=== PATIENT | male | born 1965 | race Caucasian/White ===

== ENCOUNTER 2021-08-27 17:40 | Outpatient (CLI) | payer OTHER, SELFPAY ==
--- NOTE | ~2021-08-27 | CT_ITS ---
EXAMINATION: CT lung screening DATE: 08/27/2021 18:15 INDICATION: Personal history of nicotine dependence, prior smoker with 45 pack year history TECHNIQUE: Computed tomography (CT) of the chest was performed without intravenous contrast. The dose -length product (DLP) was 271.28 mGy-cm. Automated exposure control and iterative reconstruction tech [employer] were employed. COMPARISON: None FINDINGS: There is a 5 mm nodule of the right middle lobe on image 73. There is mild emphysema. The l ungs are free of focal airspace opacities. There is no pleural effusion or pneumothorax. No pathologi balta enlarged thoracic lymph nodes are identified. The heart size is normal. There is calcified vargas nary artery atherosclerosis. A small pericardial effusion is noted. The gallbladder is surgically abs ent. There is mild thoracic spondylosis. IMPRESSION: 1. Lung-RADS category 2: Benign appearance or behavior. Continue annual screening with noncontrast lo w-dose chest CT in 12 months. Reviewed, dictated and finalized at location B. IMPRESSION: 1. Lung-RADS category 2: Benign appearance or behavior. Continue annual screeni ng with noncontrast low-dose chest CT in 12 months.
== END 2021-08-27 17:41 | disposition home or self-care (01) ==
LOC: ANHIMG 17:48
PROVIDERS: PCP Emergency Medicine; Visit Provider Emergency Medicine
DX: Z12.2 Encounter for screening for malignant neoplasm of respiratory organs (principal); Z87.891 Personal history of nicotine dependence
CPT/HCPCS: 71271

== ENCOUNTER 2023-11-10 14:02 | Outpatient (CLI) | payer OTHER, SELFPAY ==
--- NOTE | ~2023-11-10 | CT_ITS ---
EXAMINATION: CT lung screening DATE: 11/10/2023 14:17 INDICATION: Personal history nicotine dependence, current smoker with 45 pack year history TECHNIQUE: Computed tomography (CT) of the chest was performed without intravenous contrast. The dose -length product (DLP) was 204.14 mGy-cm. Automated exposure control and iterative reconstruction tech [employer] were employed. COMPARISON: 08/27/2021 FINDINGS: There is mild emphysema. The previously described nodule of the right middle lobe is no tam cliff present, likely resolving infection/inflammation. There is mild dependent atelectasis. No pleural effusion or pneumothorax. No pathologically enlarged thoracic lymph nodes are identified. The heart size is normal. Calcified coronary artery atherosclerosis is noted. There is a small, chronic pericar dial effusion. Changes of cholecystectomy are noted. There is mild thoracic spondylosis. IMPRESSION: 1. Lung-RADS category 1: Negative. Continue annual screening with noncontrast low-dose chest CT in 12 months. Reviewed, dictated and finalized at location F. EY MORTISER OPERATOR IMPRESSION: 1. Lung-RADS category 1: Negative. Continue annual screening with noncontrast l ow-dose chest CT in 12 months.
== END 2023-11-10 14:03 | disposition home or self-care (01) ==
PROVIDERS: PCP Emergency Medicine; Visit Provider Emergency Medicine
DX: Z12.2 Encounter for screening for malignant neoplasm of respiratory organs (principal); F17.210 Nicotine dependence, cigarettes, uncomplicated; R10.84 Generalized abdominal pain
CPT/HCPCS: 71271

== ENCOUNTER 2023-11-10 14:32 | Emergency (ER) | payer OTHER, SELFPAY ==
--- NOTE | ~2023-11-10 | CT_ITS ---
EXAMINATION: CT abdomen pelvis w con INDICATION: Epigastric pain TECHNIQUE: Computed tomographic images of the abdomen and pelvis were obtained after the administrati on of 100 cc of Omnipaque 350 intravenous contrast. The dose-length product (DLP) was 1034.17 mGy-cm. Automated exposure control and iterative reconstruction technique were employed. COMPARISON: None available FINDINGS: Minimal dependent atelectasis is present in the lung bases. The heart size is normal. There is circumferential wall thickening of the distal esophagus. There is wall thickening in the distal b fabian of the stomach. There appears to be an ulcer in the posterior/cranial aspect of the body of the s tomach. Changes of cholecystectomy are noted. The liver, spleen, pancreas, and adrenal glands are nor mal. Cysts of the kidneys measure up to 10 mm on the left. No pathologically enlarged abdominal or pe lvic lymph nodes are identified. There is calcified atherosclerosis of the aorta and many of the othe r arteries. A moderate volume of colonic stool is present. The appendix is normal. There is moderate lumbar spondylosis. IMPRESSION: 1. Wall thickening of the stomach associated with an apparent ulceration in the distal body. 2. Wall thickening of the esophagus which could reflect esophagitis. Reviewed, dictated and finalized at location F. DISTRIBUTION SUPERVISOR
[2023-11-10 15:03] VITALS: BP 144/75; PULSE 64; RESP 16; TEMP 36.6; O2SAT 98
--- NOTE | 2023-11-10 16:06 | ED.GENADULT ---
HPI - General Adult General Chief complaint: Abdominal Pain Stated complaint: abdominal pain Time Seen by Provider: 11/10/23 16:05 Source: patient Mode of arrival: ambulatory Limitations: no limitations History of Present Illness HPI narrative: This is a 58-year-old male who presents to the ED with chief complaint of abdominal pain for 1 month. Reports he was scheduled for CT scan today for his chest abdomen and pelvis but insurance denied the abdomen and pelvis. Reports the pain is across the mid abdomen and comes and goes intermittently. He does not feel things are worsening. He was told by his primary care to come here for abdominal ultrasound. Patient is otherwise asymptomatic. Reports that he has had 2 episodes of vomiting in the past month but none today. Denies fevers, chills Past history of cholecystectomy. Related Data Allergies Allergy/AdvReac Type Severity Reaction Status Date / Time No Known Allergies Allergy Unverified 08/19/15 13:00 Review of Systems Review of Systems: All systems as dictated in HPI Exam Narrative: GENERAL: Well-appearing, well-nourished, and in no acute distress. HEAD: Normocephalic, atraumatic. EYES: PERRLA and EOMI. ENT: Nares clear, no rhinorrhea or epistaxis. Mucous membranes moist. NECK: Supple. No adenopathy or masses. CHEST: No respiratory distress. Clear to auscultation. No wheezes rales or rhonchi HEART: Regular rate and rhythm. No murmur heard. Normal peripheral pulses. ABDOMEN: Mild epigastric tenderness. soft, otherwise nontender, nondistended, normal active bowel sounds. MSK: Normal range of motion. No edema. SKIN: Warm, dry, no rash. NEURO: Alert and oriented x3. No focal deficits. PSYCH: Normal mood and affect. Course Vital Signs Vital signs: Vital Signs Temperature 97.9 F 11/10/23 15:03 Pulse Rate 64 11/10/23 15:03 Respiratory Rate 16 11/10/23 15:03 Blood Pressure 144/75 H 11/10/23 15:03 Pulse Oximetry 98 11/10/23 15:03 Oxygen Delivery Room Air 11/10/23 15:03 Temperature 97.9 F 11/10/23 15:03 Pulse Rate 64 11/10/23 15:03 Respiratory Rate 16 11/10/23 15:03 Blood Pressure 144/75 H 11/10/23 15:03 Pulse Oximetry 98 11/10/23 15:03 Oxygen Delivery Room Air 11/10/23 15:03 Medical Decision Making [facility] Narrative Medical decision making narrative: This is a 58 of year old male with chief complaint of abdominal pain for 1 month. Refer to the ED by primary care for a CT scan after his got denied by insurance today. Vitals here are normal. Afebrile. Exam does show epigastric tenderness. Lab work shows normal white count. Lipase normal. CMP shows slightly elevated BUN at 23 and elevated glucose at 10:[address] abdomen and pelvis with IV contrast: 1. Wall thickening of the stomach associated with an apparent ulceration in the distal body. 2. Wall thickening of the esophagus which could reflect esophagitis.. Symptoms are consistent with gastritis. Will start on omeprazole daily. Follow-up with PCP. Pt will be discharged in stable condition. Return precautions given and supportive measures discussed. Pt is understanding and agreeable with plan for discharge and follow-up with PCP. Vital Signs Vital Signs: Vital Signs Temperature 97.9 F 11/10/23 15:03 Pulse Rate 64 11/10/23 15:03 Respiratory Rate 16 11/10/23 15:03 Blood Pressure 144/75 H 11/10/23 15:03 Pulse Oximetry 98 11/10/23 15:03 Oxygen Delivery Room Air 11/10/23 15:03 Temperature 97.9 F 11/10/23 15:03 Pulse Rate 64 11/10/23 15:03 Respiratory Rate 16 11/10/23 15:03 Blood Pressure 144/75 H 11/10/23 15:03 Pulse Oximetry 98 11/10/23 15:03 Oxygen Delivery Room Air 11/10/23 15:03 Lab Data 11/10/23 16:26 11/10/23 16:26 Labs: Lab Results 11/10/23 Range/Units 16:26 WBC 9.3 (4.5-10.0) K/mm3 RBC 5.78 (4.6-6.20) M/mm3 Hgb 16.9 (14.0-18.0) g/dL Hct 52.2
[2023-11-10 16:33] LABS: Basophils Absolute Auto 0.1 K/mm3 (0.0-0.1); Eosinophils Absolute Auto 0.6 K/mm3 (0-0.3); Eosinophils Percent Auto 6.3 % (0-4.4); Hematocrit 52.2 % (42.0-52.0); Hemoglobin 16.9 g/dL (14.0-18.0); Immature Granulocyte Absolute 0.09 K/mm3 (0.00-0.031); Lymphocytes Absolute Auto 2.35 K/mm3 (0.9-3.2); Lymphocytes Percent Auto 25.2 % (18.3-44.2); Mean Corpuscular HGB Conc 32.4 g/dl (32-36); Mean Corpuscular Hemoglobin 29.2 pg (26-34); Mean Corpuscular Volume 90.3 fl (80-100); Mean Platelet Volume 9.9 fl (7.4-10.4); Monocytes Absolute Auto 0.7 K/mm3 (0.1-0.6); Monocytes Percent Auto 7.2 % (2.6-8.5); Neutrophils Absolute Auto 5.6 K/mm3 (1.3-6.7); Neutrophils Percent Auto 59.3 % (45.5-73.1); Platelet Count Result 237 k/mm3 (150-375); Red Blood Count 5.78 M/mm3 (4.6-6.20); Red Cell Distribution Width 12.5 % (11.5-14.5); White Blood Count 9.3 K/mm3 (4.5-10.0)
[2023-11-10 16:43] LABS: Alanine Aminotransferase 16 U/L (6-50); Albumin Level 3.9 g/dL (3.5-5.1); Alkaline Phosphatase 103 U/L (38-126); Anion Gap 7 mmol/L (8-16); Aspartate Amino Transferase 21 U/L (17-59); Bilirubin,Total 0.6 mg/dL (0.2-1.3); Blood Urea Nitrogen 23 mg/dL (9-20); Calcium 9.2 mg/dL (8.4-10.2); Carbon Dioxide 29 mmol/L (22-30); Chloride 100 mmol/L (98-107); Estimated CRCL calculation 73 ml/min; Estimated Glomerular Filt Rate > 60; Glucose 234 mg/dL (65-110); Lipase 223 U/L (23-300); Potassium 4.4 mmol/L (3.4-5.0); Sodium 136 mmol/L (137-145)
== END 2023-11-10 18:16 | disposition home or self-care (01) ==
LOC: ANHED 18:09
PROVIDERS: Emergency Provider Physician Assistant; PCP Emergency Medicine
DX: K29.70 Gastritis, unspecified, without bleeding (principal)
CPT/HCPCS: 36415; 71271; 74177; 80053; 83690; 85025; 99284; Q9967

== ENCOUNTER 2023-11-24 01:04 | Day surgery (SDC) | payer OTHER, SELFPAY ==
[2023-11-11 11:54] VITALS: BMI 29.0
--- NOTE | 2023-11-21 09:43 | SUR.PREOP ---
Patient called regarding upcoming procedure. Voicemail left regarding pt arrival date and time.
[2023-11-24 07:40] VITALS: BP 110/69; PULSE 73; RESP 18; TEMP 36.5; O2SAT 98; BMI 29.3
[2023-11-24] MEDS: LACTATED RINGERS 1,000 ML 150 ML IV CONT (08:03)
[2023-11-24 08:04] LABS: Glucose Point of Care 239 mg/dl (65-105)
--- NOTE | 2023-11-24 08:12 | P.PNAN_ITS ---
Anes - Initial Pre Proc Eval Procedure: Operation Date: 11/24/23 09:00 Proposed Procedures p Esophagogastroduodenoscopy & Colonoscopy - John Frances MD Date/Time: 11/24/23 08:12 Surgeon: John Frances MD Pre Op Diagnosis: Abnormal weight loss, early satiety, abdom.pain Patient Data Age: 58 Gender: M Height: 1.78 m Weight: 92.8 kg Last Vital Signs Temp 97.7 F 11/24/23 07:40 Pulse 73 11/24/23 07:40 Resp 18 11/24/23 07:40 BP 110/69 11/24/23 07:40 Pulse Ox 98 11/24/23 07:40 O2 Del Method Room Air 11/24/23 07:40 Allergies Allergy/AdvReac Type Severity Reaction Status Date / Time No Known Allergies Allergy Verified 11/24/23 07:47 Home Medications Medication Instructions Recorded Confirmed Type omeprazole 40 mg capsule,delayed 40 mg PO DAILY #30 caps 11/10/23 11/24/23 Rx release canagliflozin 300 mg tablet 300 mg PO DAILY 11/11/23 11/24/23 History (Invokana) gabapentin 300 mg capsule 300 mg PO TID 11/11/23 11/24/23 History insulin glargine 100 unit/mL (3 50 unit subcut HS 11/11/23 11/24/23 History mL) subcutaneous pen (Basaglar KwikPen U-100 Insulin) irbesartan 300 mg tablet 300 mg PO DAILY 11/11/23 11/24/23 History metformin 1,000 mg tablet 1,000 mg PO BID 11/11/23 11/24/23 History rosuvastatin 10 mg tablet 10 mg PO DAILY 11/11/23 11/24/23 History Laboratory Tests 11/24/23 08:02 POC Capillary Glucose 239 H mg/dl (65-105) Patient hx anesthesia problems: none Family hx anesthesia problems: none Results Review: All pre-operative results and documents have been reviewed as part of the pre- operative evaluation. [facility] Social History Social History Smoking packs per day: 0.75 Smoking cigarettes per day: 15.0 Years smoked: 46 Smoking pack-years: 34.50 Smoking status: Current every day smoker Tobacco type: cigarettes Alcohol intake: current Substance use: former Living arrangements: alone Spiritual care concerns: No Anes - Eval Final PreProcedure Day of Procedure 11/24/23 08:12 Patient weight: obese Heart: regular rate and rhythm Lungs: clear to auscultation Airway: Mallampati scale class II Neurological: alert and oriented Last oral intake: >/= 8 hours ASA classification: III Emergent: no Anesthetic plan: proceed Anesthesia type and monitoring: general GIVS and standard monitoring Results Review: All pre-operative results and documents have been reviewed as part of the pre- operative evaluation. Informed Consent: The patient's anesthetic plan and its attendant risks and benefits were discussed with the patient/family/POA. Questions were solicited and answers provided to the satisfaction of the patient/family/POA.
--- NOTE | 2023-11-24 08:41 | PM.HPGS ---
History of Present Illness History of Present Illness Consent: Risks, benefits, and alternatives have been discussed and questions answered. Patient agrees to proceed with procedure. Chief complaint: Abnormal weight loss, early satiety, abdom.pain Narrative: Jorge Monge is a 58 year old male here with 1.5 month of intermittent abdominal pain, ct scan showed possible ulceration in stomach- started omeprazole and feeling better, also constipation. Never had scopes Review of Systems Constitutional: Constitutional: Denies headache(s) and Denies weakness Eyes: Eyes: Denies blurry vision ENT: Reports Normal hearing present, Denies headache(s) and Denies neck pain Cardiovascular: Cardiovascular: Denies chest pain and Denies dyspnea Respiratory: Respiratory: Denies dyspnea Gastrointestinal: Gastrointestinal: Reports no additional gastrointestinal complaints Genitourinary: Genitourinary: Denies dysuria Musculoskeletal: Musculoskeletal: Denies neck pain Integumentary/Breasts: Skin/Breast: Denies dry skin Neurologic: Reports Normal hearing present, Denies headache(s) and Denies weakness Psychiatric: Psychiatric: Denies anxiety Endocrine: Endocrine: Denies change in body appearance Hematologic/Lymphatic: Hematologic/Lymphatic: Denies easy bleeding Allergic/Immunologic: Allergic/Immunologic: Denies urticaria PMFSH Past Medical History Medical History (Updated 11/24/23 @ 08:42 by John Frances MD) Abdominal pain Abnormal CT scan, stomach Weight loss Social History Social History Smoking packs per day: 0.75 Smoking cigarettes per day: 15.0 Years smoked: 46 Smoking pack-years: 34.50 Smoking status: Current every day smoker Tobacco type: cigarettes Alcohol intake: current Substance use: former Living arrangements: alone Spiritual care concerns: No Meds Home Medications and Allergies Home Medications Medication Instructions Recorded Confirmed Type omeprazole 40 mg capsule,delayed 40 mg PO DAILY #30 caps 11/10/23 11/24/23 Rx release canagliflozin 300 mg tablet 300 mg PO DAILY 11/11/23 11/24/23 History (Invokana) gabapentin 300 mg capsule 300 mg PO TID 11/11/23 11/24/23 History insulin glargine 100 unit/mL (3 50 unit subcut HS 11/11/23 11/24/23 History mL) subcutaneous pen (Basaglar KwikPen U-100 Insulin) irbesartan 300 mg tablet 300 mg PO DAILY 11/11/23 11/24/23 History metformin 1,000 mg tablet 1,000 mg PO BID 11/11/23 11/24/23 History rosuvastatin 10 mg tablet 10 mg PO DAILY 11/11/23 11/24/23 History Allergies Allergy/AdvReac Type Severity Reaction Status Date / Time No Known Allergies Allergy Verified 11/24/23 07:47 Vital Signs Vital Signs - 24 hr 11/24/23 07:40 Temperature 97.7 F Pulse Rate 73 Respiratory Rate 18 Blood Pressure 110/69 Pulse Oximetry 98 Oxygen Delivery Room Air Exam Const: General: comfortable and no acute distress HENMT: Face/Nose/Sinus: Normal nares present Eyes: General: appearance normal, both eyes and all related structures Neck: Neck: no JVD Resp: Auscultation: clear to auscultation bilaterally Cardio: Rate: regular rate Rhythm: regular rhythm GI: Inspection: non-distended GI Palp: Yes Soft to palpation Skin: General skin exam: normal color Neuro: General: gait normal Speech: normal speech Extrem: General: normal to inspection Psych: Mental Status: mental status grossly normal Assessment and Plan Assessment and plan (1) Abdominal pain: Code(s): R10.9 - Unspecified abdominal pain Status: Acute Assessment and Plan: scopes today (2) Abnormal CT scan, stomach: Code(s): R93.3 - Abnormal findings on diagnostic imaging of other parts of digestive tract Status: Acute Assessment and Plan: ? ulcer pain better after using ppi (3) Weight loss: Code(s): R63.4 - Abnormal weight loss Status: Acute
[2023-11-24 08:49] VITALS: BP 113/63; PULSE 70; RESP 18; O2SAT 100
--- NOTE | 2023-11-24 09:05 | SUR.OPER ---
EGD START: 850; END: 857. COLONOSCOPY START: 904; END: 915.
[2023-11-24 09:19] VITALS: BP 75/47; PULSE 64; RESP 20; O2SAT 96
[2023-11-24 09:29] VITALS: BP 74/47; PULSE 66; RESP 18; O2SAT 96
[2023-11-24 09:39] VITALS: BP 92/55; PULSE 64; RESP 20; O2SAT 96
[2023-11-24 09:40] LABS: Glucose Point of Care 237 mg/dl (65-105)
== END 2023-11-24 09:56 | disposition home or self-care (01) ==
PROVIDERS: PCP Emergency Medicine; Visit Provider Internal Medicine Gastroenterology
PROC: 0DJ08ZZ Inspection of Upper Intestinal Tract, Via Natural or Artificial Opening Endoscopic (ICD-10-PCS; CPT 43235; principal; 2023-11-24 09:00)
DX: K25.9 Gastric ulcer, unspecified as acute or chronic, without hemorrhage or perforation (principal); K29.50 Unspecified chronic gastritis without bleeding; K57.30 Diverticulosis of large intestine without perforation or abscess without bleeding; F17.210 Nicotine dependence, cigarettes, uncomplicated; E66.9 Obesity, unspecified; Z68.29 Body mass index [BMI] 29.0-29.9, adult; Z79.4 Long term (current) use of insulin; Z79.84 Long term (current) use of oral hypoglycemic drugs
CPT/HCPCS: 43239; 45378; 82948; 88305; 88342; J2704; J7120

== ENCOUNTER 2025-03-25 17:01 | Emergency (ER) | payer OTHER, SELFPAY ==
--- NOTE | ~2025-03-25 | CT_ITS ---
CT abdomen pelvis w con Ordering provider: Michael Dunbar MD History: 60 years Male with . Deep abd wall abscess/spider bite, . Comparison: November 10, 2023 Technique: CT abdomen and pelvis with IV and without oral contrast. Automated exposure control and it erative reconstruction technique were employed. The dose-length product was 745.98 mGy-cm. 100 mL Omn ipaque 350 was given IV. Findings: VISUALIZED LOWER CHEST: Dependent atelectatic changes. Trace of pericardial effusion. UPPER ABDOMINAL ORGANS: Liver: Normal. Gallbladder: Status post postcholecystectomy. Spleen: Normal. Stomach/duodenum: Normal. Pancreas: Normal. Adrenals: Normal. Kidneys: Tiny cysts in both kidneys. PELVIC ORGANS: The bladder shows thickened wall. Evaluation for cystitis advised. BOWEL AND MESENTERY: Colon: No evidence of diverticulitis. Normal appendix. Small Bowel: Normal. No obstruction. Peritoneum/mesentery: No free air or free fluid. No mesenteric lymphadenopathy. RETROPERITONEUM: Mild atheromatous disease of the abdominal aorta. No retroperitoneal lymphadenopat hy. MUSCULOSKELETAL: Superficial soft tissues: Fat stranding seen in the anterior abdominal wall and to the right side wit h focal area of collection measuring 1.5 x 2.2 cm seen in the right anterior abdominal wall suggestiv e of an abscess.. The superficial soft tissues are normal. Bones: Age appropriate degenerative changes of the spine. Sacroiliitis. IMPRESSION: 1. Trace of pericardial effusion 2. Fat stranding in the subcutaneous tissues with focal area of collection suggestive of a small abs cess in the upper anterior abdominal wall. 3. No evidence of appendicitis, diverticulitis or intestinal obstruction. Reviewed, dictated and finalized at location A. IMPRESSION: 1. Trace of pericardial effusion 2. Fat stranding in the subcutaneous tissues with focal area of collection sug gestive of a small abscess in the upper anterior abdominal wall. 3. No evidence of appendicitis, diverticulitis or intestinal obstruction.
--- OUTSIDE RECORDS SUMMARY | 2025-03-25 17:03 | XMS_ITS | Encounter Summary ---
Author Organization [facility] Healthcare Address [address] [place] [address] Care Team Providers Care Cane Flume Chute Operator Name Role Phone Isael Galdamez MD Primary Care Provider Reason for Visit * Reason Comments Insect Bite Encounter Details Date Type Department Care Team (Late st Contact Info) Description 03/24/2025 7:05 PM CDT - 03/24/2025 11:21 PM CDT Emergency [address] [address] Discharge Disposition: Left without being seen Social History Tobacco Use Types Packs/Day Years Used Date Smoking Tobacco: Some Days Cigarettes Smokeless Tobacco: Never PHQ-2 Answer Date Recorded PHQ-2 Total Score (If total score is 3 or more points, staff should administer the PHQ-9) 0 02/21/2022 Personal Safety Answer Date Recorded Have you ever been in or are you currently in a harmful physical or emotional relationship or is someone making you feel afraid or unsafe? 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 Gender Identity Not on file Sexual Orientation Not on file documented as of this encounter Last Filed Vital Signs Vital Sign Reading Time Taken Comments Blood Pressure 175/90 03/24/2025 9:37 PM CDT Pulse 79 03/24/2025 9:37 PM CDT Temperature 36.9 C (98.4 F) 03/24/2025 7:06 PM CDT Respiratory Rate 16 03/24/2025 9:37 PM CDT Oxygen Saturation 99% 03/24/2025 9:37 PM CDT Inhaled Oxygen Concentration - - Weight 94.8 kg (209 lb) 03/24/2025 7:06 PM CDT Height - - Body Mass Index 29.99 02/11/2025 8:47 AM CDT documented in this encounter Medications at Time of Discharge amLODIPine (NORVASC) 10 mg tabletIndication s:hypertension Take 1 tablet (10 mg total) by mouth daily 90 tablet 3 02/11/2025 02/11/2026 aspirin 81 mg enteric coated tablet Take 1 tablet (81 mg total) by mouth daily 11/27/2016 BASAGLAR 100 unit/mL (3 mL) pen for injectionIndicat ions:Type 2 diabetes mellitus with hyperglycemia, with long-term current use of insulin ([facility]) Inject 50 Units under the skin nightly 45 mL 3 02/11/2025 02/11/2026 blood glucose diagnostic (glucose blood) strip Check blood sugar 2 times a day or as directed 200 each 3 08/22/2022 canagliflozin (Invokana) 300 mg tabletIndication s:Type 2 diabetes mellitus with hyperglycemia, with long-term current use of insulin ([facility]) Take 1 tablet (300 mg total) by mouth daily 90 tablet 3 02/11/2025 gabapentin (NEURONTIN) 300 mg capsuleIndicatio ns:Diabetic peripheral neuropathy (HCC) Take 1 capsule (300 mg total) by mouth every morning AND 2 capsules (600 mg total) nightly AND 1 capsule (300 mg total) with lunch. 360 capsule 3 02/11/2025 02/11/2026 HYDROcodone-acet aminophen (NORCO) 5-325 mg per tablet Take 1 tablet by mouth every 6 (six) hours as needed 03/12/2024 irbesartan (AVAPRO) 300 mg tabletIndication s:Hypertension associated with type 2 diabetes mellitus (HCC) Take 1 tablet (300 mg total) by mouth daily 90 tablet 3 02/11/2025 02/11/2026 metFORMIN (GLUCOPHAGE) 1,000 mg tabletIndication s:Type 2 diabetes mellitus with hyperglycemia, with long-term current use of insulin ([facility]) Take 1 tablet (1,000 mg total) by mouth 2 (two) times a day with meals 180 tablet 3 02/11/2025 omeprazole (PriLOSEC) 40 mg capsuleIndicatio ns:Peptic ulcer disease Take 1 capsule (40 mg total) by mouth daily 90 capsule 3 06/07/2024 06/07/2025 pen needle, diabetic (Pen Needle) 31 gauge x 5/16 needle Use to inject 1-4 times daily as directed 100 each 11 01/16/2022 rosuvastatin (CRESTOR) 10 mg tabletIndication s:Hyperlipidemia associated with type 2 diabetes mellitus (HCC) Take 1 tablet (10 mg total) by mouth daily 90 tablet 3 02/11/2025 02/11/2026 semaglutide (OZEMPIC) 1 mg/dose (4 mg/3 mL) pen injector injectionIndicat ions:type 2 diabetes mellitus Inject 1 mg under the skin every 7 days 9 mL 3 02/11/2025 02/11/2026 senna 8.6 mg tablet 03/12/2024 documented as of this encounter Discharge Disposition Disposition Code Departure Means Destination Left without being seen documented in this encounter ED Notes * German Russ RN - 03/24/2025 7:24 PM CDT Pt c/o red swollen abscess on abd x 5 days. Aox4 ambulatory. Pt take BP meds @ night. No meds today documented in this encounter Plan of Treatment Not on file documented as of this encounter Visit Diagnoses Not on filedocumented in this encounter Care Teams Cane Flume Chute Operator Relationship Specialty Start Date End Date Isael Galdamez MD [address] [place] [address] PCP - General Family Medicine 07/03/21 documented as of this encounter
--- OUTSIDE RECORDS SUMMARY | 2025-03-25 17:03 | XMS_ITS | Continuity of Care Document ---
Author Organization [facility] Address [address] [place] [address] [place] [address] Phone Care Team Providers Care Roll Inspector Name Role Phone Isael Galdamez MD Unavailable Unavailable Allergies, Adverse Reactions, Alerts Substance Reaction Status Criticality No Known Allergies Active No Inform ation Medications Medication Instructions Dosage Effective Dates (start - stop) Status Comments Cymbalta 30 mg capsule,delayed release take 1 capsule by oral route every day 30 MG - Active omeprazole 40 mg capsule,delayed release take 1 capsule by oral route every day before a meal 40 MG - Active Neurontin 300 mg capsule take 1 capsule by oral route 3 times every day - Active avoid driving or operate machines Norvasc 5 mg tablet take 1 tablet by oral route every day 5 MG - Active Crestor 10 mg tablet take 1 tablet by oral route every day 10 MG - Active metformin 1,000 mg tablet take 1 tablet by oral route 2 times every day with morning and evening meals 1000 MG - Active irbesartan 300 mg tablet take 1 tablet by oral route every day 300 MG - Active Basaglar KwikPen U-100 Insulin 100 unit/mL (3 mL) subcutaneous inject by subcutaneous route as per insulin protocol 0.00 - Active 60 units SC at night Victoza 2-Jerardo 0.6 mg/0.1 mL (18 mg/3 mL) subcutaneous pen injector inject 0.2 Milliliter by subcutaneous route every day 1.2 MG - Active Invokana 300 mg tablet take 1 tablet by oral route every day before the first meal of the day 300 MG - Active pen needle, diabetic 31 gauge x 1/4 use with basaglar pen - Active Procedures Procedure Date PREV VISIT, EST, AGE 40-64 OFFICE/OUTPATIENT VISIT, EST OFFICE/OUTPATIENT VISIT, EST OFFICE/OUTPATIENT VISIT, EST OFFICE/OUTPATIENT VISIT, EST OFFICE/OUTPATIENT VISIT, EST OFFICE/OUTPATIENT VISIT, EST PREV VISIT, EST, AGE 40-64 OFFICE/OUTPATIENT VISIT, EST OFFICE/OUTPATIENT VISIT, EST PREV VISIT, EST, AGE 40-64 OFFICE/OUTPATIENT VISIT, EST OFFICE/OUTPATIENT VISIT, EST PREV VISIT, EST, AGE 40-64 OFFICE/OUTPATIENT VISIT, EST PREV VISIT, EST, AGE 40-64 OFFICE/OUTPATIENT VISIT, EST OFFICE/OUTPATIENT VISIT, EST OFFICE/OUTPATIENT VISIT, EST OFFICE/OUTPATIENT VISIT, EST OFFICE/OUTPATIENT VISIT, EST OFFICE/OUTPATIENT VISIT, EST PREV VISIT, EST, AGE 40-64 OFFICE/OUTPATIENT VISIT, EST OFFICE/OUTPATIENT VISIT, EST OFFICE/OUTPATIENT VISIT, EST OFFICE/OUTPATIENT VISIT, EST OFFICE/OUTPATIENT VISIT, EST OFFICE/OUTPATIENT VISIT, EST OFFICE/OUTPATIENT VISIT, EST OFFICE/OUTPATIENT VISIT, EST PREV VISIT, NEW, AGE 40-64 Advance Directives Directive Yes / No Effective Date File Name No Information Encounters Encounter Description Practice Location Reason(s) For Visit Diagnoses Date Provider Providers Copied on Encounter [facility], [address], [place], [address], [place] tel:[phone] [facility] No Information 4 Rudolph Kirkland. [address], [place], [place], [address] , [place]. tel:[phone] PREV VISIT, EST, AGE 40-64 [facility], [address], [place], [place], [address], [place] [phone] [facility] Medicine physical (chief complaint) Encounter for general adult medical examination without abnormal findings 4 Rudolph Kirkland. [address], [place], [place], [address] , [place]. tel:[phone] OFFICE/OUTPA TIENT VISIT, [facility], [address], [place], [place], [address], [place] tel:[phone] [facility] gastric ulcer1 (chief complaint) HTN (chief complaint) HLP (chief complaint) PSA (chief complaint) Acute gastric ulcer without hemorrhage or perforationEssentia l (primary) hypertensionElevate d prostate specific antigen [PSA]Mixed hyperlipidemia 4 Rudolph Kirkland. [address], [place], [place], [address] , [place]. tel:[phone] OFFICE/OUTPA TIENT VISIT, EST [facility], [address], [place], [place], [address], [place] tel:[phone] [facility] abd pain1 (chief complaint) tobacco1 (chief complaint) Acute gastric ulcer without hemorrhage or perforationEsophagi tisTobacco use 4 Rudolph Kirkland. [address], [place], [place], [address] , [place]. tel:[phone] OFFICE/OUTPA TIENT VISIT, EST [facility], [address], [place], [place], [address], [place] tel:[phone] [facility] abd pain1 (chief complaint) HTN (chief complaint) Abnormal weight lossGeneralized abdominal painEssential (primary) hypertension 4 Rudolph Kirkland. [address], [place], [place], [address] , [place]. tel:[phone] OFFICE/OUTPA TIENT VISIT, EST [facility], [address], [place], [place], [address], [place] tel:[phone] [facility] PSA (chief complaint) fatigue1 (chief complaint) HTN (chief complaint) DM (chief complaint) Elevated prostate specific antigen [PSA]Essential (primary) hypertensionTobacco useType 2 diabetes mellitus with diabetic mononeuropathyFatig ue 3 Rudolph Kennedy [address], [place], [place], [address] , [place]. tel: [phone] OFFICE/OUTPA TIENT VISIT, [facility], [address], [place], [place], [address], [place] tel:[phone] [facility] PSA (chief complaint) HTN (chief complaint) fatigue1 (chief complaint) DM (chief complaint) HLP (chief complaint) Essential (primary) hypertensionElevate d prostate specific antigen [PSA]Mixed hyperlipidemiaSecon vasquez polycythemiaType 2 diabetes mellitus with diabetic mononeuropathyTobac co use 3 Rudolph Kennedy [address], [place], [place], [address] , [place]. [phone] OFFICE/OUTPA TIENT VISIT, [facility], [address], [place], [place], [address], [place] tel:[phone] [facility] HTN (chief complaint) DM (chief complaint) polycyther mia1 (chief complaint) HLP (chief complaint) Essential (primary) hypertensionType 2 diabetes mellitus with diabetic nephropathySecondar y polycythemiaMixed hyperlipidemiaEleva benja prostate specific antigen [PSA] 3 Rudolph Kennedy [address], [place], [place], [address] , [place]. [phone] PREV VISIT, EST, AGE 40-64 [facility], [address], [place], [place], [address], [place] tel:[phone] [facility] physical (chief complaint) Encounter for general adult medical examination without abnormal findings 3 Rudolph Kirkland. [address], [place], [place], [address] , [place]. tel:[phone] OFFICE/OUTPA TIENT VISIT, EST [facility], [address], [place], [place], [address], [place] tel:[phone] [facility] HLP (chief complaint) DM (chief complaint) HTN (chief complaint) Essential (primary) hypertensionHyperli pidemiaType 2 diabetes mellitus with diabetic mononeuropathy 2 Rudolph Kirkland. [address], [place], [place], [address] , [place]. tel:[phone] OFFICE/OUTPA TIENT VISIT, [facility], [address], [place], [place], [address], [place] tel:[phone] [facility] HLP (chief complaint) DM (chief complaint) HTN (chief complaint) Essential (primary) hypertensionHyperli pidemiaType 2 diabetes mellitus with diabetic mononeuropathyTobac co use 1 Rudolph Kirkland. [address], [place], [place], [address] , [place]. tel:[phone] PREV VISIT, EST, AGE 40-64 [facility], [address], [place], [place], [address], [place] tel:[phone] [facility] Medicine physical (chief complaint) Encounter for general adult medical examination without abnormal findings 1 Rudolph Kirkland. [address], [place], [place], [address] , [place]. [phone] OFFICE/OUTPA TIENT VISIT, EST [facility], [address], [place], [place], [address], [place] tel:[phone] [facility] DM (chief complaint) tobacco1 (chief complaint) HTN (chief complaint) HLP (chief complaint) HyperlipidemiaEssen tial (primary) hypertensionTobacco useType 2 diabetes mellitus with diabetic mononeuropathySecon vasquez polycythemia 1 Rudolph Kennedy [address], [place], [place], [address] , [place]. [phone] OFFICE/OUTPA TIENT VISIT, EST [facility], [address], [place], [place], [address], [place] tel:[phone] [facility] DM (chief complaint) HTN (chief complaint) shoulder pain1 (chief complaint) tobacco (chief complaint) Essential (primary) hypertensionPain in right shoulderSecondary polycythemiaHyperli pidemiaTobacco useType 2 diabetes mellitus without complications 9 Rudolph Kennedy [address], [place], [place], [address] , [place]. [phone] Referring Provider: [address], [place], [place], [address]. tel:[phone] PREV VISIT, EST, AGE 40-64 [facility], [address], [place], [place], [address], [place] tel:[phone] [facility] PHysical (chief complaint) Encntr for general adult medical exam w/o abnormal findings 9 [address], [place], [place], [address] , [place]. [phone] Referring Provider: [address], [place], [place], [address]. tel:[phone] OFFICE/OUTPA TIENT VISIT, EST [facility], [address], [place], [place], [address], [place] tel:[phone] [facility] HLP (chief complaint) HTN (chief complaint) DM (chief complaint) Type 2 diabetes mellitus without complicationsEssent ial (primary) hypertensionMixed hyperlipidemiaEncou nter for screening for other viral diseases 7 Rudolph Kennedy [address], [place], [place], [address] , [place]. [phone] Referring Provider: Florecita [address], [place], [place], [address]. tel:[phone] PREV VISIT, EST, AGE 40-64 [facility], [address], [place], [place], [address], [place] tel:[phone] [facility] Physical (chief complaint) Encounter for general adult medical exam w abnormal findingsEssential (primary) hypertensionMixed hyperlipidemiaType 2 diabetes mellitus without complications 0- 7 Rudolph Kirkland. [address], [place], [place], [address] , [place]. [phone] Referring Provider: Florecita Ari[address], [place], [place], [address]. tel:[phone] OFFICE/OUTPA TIENT VISIT, [facility], [address], [place], [place], [address], [place] tel:[phone] [facility] HLP (chief complaint) hTN (chief complaint) DM (chief complaint) Mixed hyperlipidemiaEssen tial (primary) hypertensionType 2 diabetes mellitus without complicationsFamily history of ischemic cardiac disease 7 Rudolph Kirkland. [address], [place], [place], [address] , [place]. [phone] Referring Provider: [address], [place], [place], [address]. tel:[phone] OFFICE/OUTPA TIENT VISIT, [facility], [address], [place], [place], [address], [place] tel:[phone] [facility] DM (chief complaint) HLP (chief complaint) HTN (chief complaint) back pain1 (chief complaint) Mixed hyperlipidemiaEssen tial (primary) hypertensionType 2 diabetes mellitus without complicationsLumbag o with sciatica, left side Jul-0 6 Rudolph Kennedy [address], [place], [place], [address] , [place]. [phone] Referring Provider: Florecita Ari[address], [place], [place], [address]. tel:[phone] OFFICE/OUTPA TIENT VISIT, EST [facility], [address], [place], [place], [address], [place] tel:[phone] [facility] DM (chief complaint) HLP: (chief complaint) Mixed hyperlipidemiaType 2 diabetes mellitus without complications Apr-0 6 Rudolph Kirkland. [address], [place], [place], [address] , [place]. [phone] Referring Provider: Florecita Arias [address], [place], [place], [address]. tel:[phone] OFFICE/OUTPA TIENT VISIT, [facility], [address], [place], [place], [address], [place] tel:[phone] [facility] DM (chief complaint) HTN (chief complaint) HLP (chief complaint) Mixed hyperlipidemiaEssen tial (primary) hypertensionType 2 diabetes mellitus without complicationsSecond vicente polycythemia Carlito- 6 Rudolph Kennedy [address], [place], [place], [address] , [place]. tel:[phone] Referring Provider: [address], [place], [place], [address]. tel:[phone] OFFICE/OUTPA TIENT VISIT, [facility], [address], [place], [place], [address], [place] tel:[phone] [facility] DM (chief complaint) HTN (chief complaint) HLP (chief complaint) Type 2 diabetes mellitus without complicationsMixed hyperlipidemiaEssen tial (primary) hypertensionBody mass index (BMI) 34.0-34.9, adult Jan-2 6 Rudolph Kennedy [address], [place], [place], [address] , [place]. [phone] Referring Provider: Florecita Ari[address], [place], [place], [address]. tel:[phone] PREV VISIT, EST, AGE 40-64 [facility], [address], [place], [place], [address], [place] tel:[phone] [facility] Physical (chief complaint) Encounter for general adult medical exam w abnormal findingsType 2 diabetes mellitus without complicationsMixed hyperlipidemiaEssen tial (primary) hypertension Dec- 6 Rudolph Kirkland. [address], [place], [place], [address] , [place]. tel:[phone] Referring Provider: Isael Galdamez, [address], [place], [place], [address]. tel:[phone] OFFICE/OUTPA TIENT VISIT, [facility], [address], [place], [place], [address], [place] tel:[phone] [facility] HLP1 (chief complaint) HTN1 (chief complaint) DM1 (chief complaint) Essential (primary) hypertensionMixed hyperlipidemiaType 2 diabetes mellitus w/o complication 5 Rudolph Kirkland. [address], [place], [place], [address] , [place]. tel:[phone] Referring Provider: Florecita Arias [address], [place], [place], [address]. tel:[phone] OFFICE/OUTPA TIENT VISIT, [facility], [address], [place], [place], [address], [place] tel:[phone] [facility] HTN1 (chief complaint) DM1 (chief complaint) abscess1 (chief complaint) Cutaneous abscess of groinType 2 diabetes mellitus w/o complicationEssenti al (primary) hypertensionMixed hyperlipidemia 5 Rudolph Kirkland. [address], [place], [place], [address] , [place]. tel:[phone] Referring Provider: Florecita Arias [address], [place], [place], [address]. tel:[phone] OFFICE/OUTPA TIENT VISIT, [facility], [address], [place], [place], [address], [place] tel:[phone] [facility] HTN (chief complaint) foot pain (chief complaint) DM (chief complaint) Dietary surveillance and counselingPain in limbUnspecified essential hypertensionBrittle diabetesBMI 36.0 to 36.9 5 Rudolph Kirkland. [address], [place], [place], [address] , [place]. tel:[phone] Referring Provider: [address], [place], [place], [address]. tel:[phone] OFFICE/OUTPA TIENT VISIT, [facility], [address], [place], [place], [address], [place] tel:[phone] [facility] DM (chief complaint) HLP (chief complaint) HTN (chief complaint) heel spur (chief complaint) Unspecified essential hypertensionOther and unspecified hyperlipidemiaBritt le diabetesDietary surveillance and counseling 5 Rudolph Kennedy [address], [place], [place], [address] , [place]. [phone] Referring Provider: [address], [place], [place], [address]. tel:[phone] OFFICE/OUTPA TIENT VISIT, [facility], [address] [place], [address], [place] tel:[phone] [facility] DM (chief complaint) heel pain (chief complaint) HLP (chief complaint) Dietary surveillance and counselingOther hemoglobinopathiesH yperlipidemiaPain in limbBrittle diabetes 5 Rudolph Kennedy [address], [place], [place], [address] , [place]. [phone] Referring Provider: [address], [place], [place], [address]. tel:[phone] OFFICE/OUTPA TIENT VISIT, [facility], [address], [address], [place] tel:[phone] [facility] DM (chief complaint) HLP (chief complaint) HTN (chief complaint) heel pain (chief complaint) ED (chief complaint) Dietary surveillance and counselingDiabetes Mellitus, Adult Onset, UncontrolledOther and unspecified hyperlipidemiaHyper tension, UnspecifiedPain in limb 5 Rudolph Kirkland. [address], [address] , . [phone] Referring Provider: [facility] [facility] [place], [place], [address]. tel:[phone] OFFICE/OUTPA TIENT VISIT, [facility], [address] [place], [address], [place] [phone] [facility] DM (chief complaint) HLP (chief complaint) vitamin D (chief complaint) elevated H&H (chief complaint) Dietary surveillance and counselingDiabetes Mellitus, Adult Onset, UncontrolledOther and unspecified hyperlipidemiaUnspe cified vitamin d deficiencyOther hemoglobinopathies 5 Rudolph Kennedy [address], [place], [place], [address] , [place]. [phone] Referring Provider: Florecita Arias [address] [facility] [place], [address]. tel:[phone] PREV VISIT, NEW, AGE 40-64 [facility], [address] [place], [address], [place] [phone] [facility] Physical (chief complaint) Dietary surveillance and counselingRoutine Medical ExamRoutine Medical Exam 5 Rudolph Kirkland. [address], [address] , [place]. tel:[phone] Family History Family Member Type Diagnosis Age At Onset Mother Problem (finding) Coronary artery disease 66 Father Problem (finding) Coronary artery disease 66 Sister Problem (finding) Alive and well Payers Payer name Insurance type Covered green party ID Authoriza tion(s) No Information Social History Type Description Quantity Date Captured Comments Alcohol Use Details Unknown Caffeine Use Details Unknown Tobacco Use Status No Information Smoking Status No Information Sex Male Chief Complaint And Reason For Visit No Information Plan Of Treatment Date Type Action Status Goal Tobacco cessation counseling completed Goal Tobacco cessation counseling completed Goal Special diet education compl eted Goal Special diet education compl eted Goal Tobacco cessation counseling completed Goal Tobacco cessation counseling completed Goal Tobacco cessation counseling completed Referral Ordered: COLONOSCOPY AND BIOPSY ordered Referral Ordered: CT ABDOMEN&PELVIS W/CONTRAST ordered Referral Ordered: Ambrosio Nolasco -Allopathic & Osteopathic Physicians : Urology (related to Elevated prostate specific antigen [PSA]) ordered Referral Referred To: Ambrosio Nolasco [address] [facility]
[address] [place], [place], [phone] Ordered: Referrals: Allopathic & Osteopathic Physicians : Urology. Ambrosio Nolasco. Evaluate and treat ordered Referral Ordered: SLEEP STUDY, ATTENDED ordered Referral Ordered: Junito Jimenez -Allopathic [facility] Osteopathic Physicians : Internal Medicine : Endocrinology, Diabetes & Metabolism (related to Encounter for general adult medical examination without abnormal findings) ordered Referral Ordered: CT THORAX W/O DYE ordered Referral Ordered: Junito Jimenez -[facility]opathic [facility] Osteopathic Physicians : Internal Medicine : Endocrinology, Diabetes & Metabolism (related to Type 2 diabetes mellitus without complications) ordered Referral Ordered: Bernard Mobley -Allopathic & Osteopathic Physicians : Orthopaedic Surgery (related to Pain in right shoulder) ordered Referral Referred To: Junito Jimenez [address] [place], [place], [phone] Ordered: Referrals: Allopathic & Osteopathic Physicians : Internal Medicine : Endocrinology, Diabetes & Metabolism. Junito Jimenez. Evaluate and treat ordered Referral Referred To: Bernard Mobley [address] [place], [place], [phone] Ordered: Referrals: Allopathic & Osteopathic Physicians : Orthopaedic Surgery. Bernard Mobley. Evaluate and treat ordered Referral Ordered: US EXAM, EXTREMITY ordered Referral Ordered: LISSETH MARCH (related to Family history of ischemic cardiac disease) ordered Referral Referred To: LISSETH MARCH [address] [place], [place], [phone] Ordered: Referrals: LISSETH MARCH. Evaluate and treat ordered Referral Ordered: Junito Jimenez (related to Type 2 diabetes mellitus without complications) ordered Referral Referred To: Junito Jimenez [address] [place], [phone] Ordered: Referrals: Junito Jimenez. Evaluate and treat ordered Referral Ordered: Hematology (related to Encounter for general adult medical exam w abnormal findings) ordered Referral Ordered: Natalee Palomino (related to Encounter for general adult medical exam w abnormal findings) ordered Referral Ordered: Referrals: Hematology. Evaluate and treat ordered Referral Referred To: Natalee Palomino [address] [facility]
[address] [place], [place], [phone] Ordered: Referrals: Natalee Palomino. Evaluate and treat ordered Referral Ordered: Orthopedic Surgery (related to Pain in limb) ordered Referral Ordered: Referrals: Orthopedic Surgery ordered Referral Ordered: HEEL/OSCALCIS XRAY Left ordered History Of Present Illness Encounter Date Complaint History Of Prese nt Illness physical Pt needs annual physical Pt has gastric ulcer pt is on omeprazole and doing ok. Pt denies any abd pain Pt has DM with proteinuria Pt is on metformin, victoza, Invokona and basaglar and his glucose has been around 200. his a1c is getting worse. Pt has neuropathy and dong ok with neurontin . pt has polycythemia. Pt has normal iron pt was just diagnosed with prostate CA Pt sees urology at [facility]. Pt also had PET scan done last week .Pt has HTN ,Pt feels very anxious and depressed lately due to prostate CA diagnosis. His bp is high as well .He denies any chest pain or headache. Pt denies any suicidal or homicidal thought Pt denies any crying spells. gastric ulcer1 Pt has gastric u lcer which is nonbleeding on EGD yesterday Pt also had benign colonoscopy Pt is on omeprazole nw and he has not had any abd pain. HTN Pt has HTN Pt ta kes irbesartan and norvasc and his bp is ok HLP Pt has HLP pt ta kes crestor .pt denies any myalgia PSA Pt has elevated PSA Pt denies any urinary symptoms Pt is seeing urology and he will do MRI of prostate next month tobacco1 Pt has 40 pack y ear tobacco history. Pt denies any hemoptysis, sob or cough. Pt had LDCT done which was normal. Pt no longer smoking abd pain1 Pt c/o intermitt ent dull abdominal pain under belly button area for 4 weeks. Pt feels slightly nausea with vomiting x 2-3 times .Pt denies any diarrhea. He notices mild bright red blood mixed with stool for several months Pt c/o constipation as well for several months. Pt denies any postprandial pain Pt has been losing weight for the past several weeks unintentionally .Pt notices change of bowel with more constipation lately. Pt feels mild early satiety. Pt went to ER and he had Ct done which showed esophagitis and gastric ulcer. his hemoglobin is ok. Pt was started on omeprazole but he has not started it yet. abd pain1 Pt c/o intermitt ent dull abdominal pain under belly button area for 3 weeks. Pt feels slightly nausea with vomiting x 2-3 times .Pt denies any diarrhea. He notices mild bright red blood mixed with stool for several months Pt c/o constipation as well for several months. Pt denies any postprandial pain Pt has been losing weight for the past several weeks unintentionally .Pt notices change of bowel with more constipation lately. Pt feels mild early satiety HTN Pt has HTN Pt ta kes irbesartan and norvasc and bp is better now .Pt denies any chest pain or headache PSA Pt has elevated PSA. Pt denies any urinary symptoms Pt saw urology and he will do MRI of prostate soon fatigue1 Pt has chronic f atigue Pt snores. Pt has magad for sleep study next month DM Pt has DM with n europathy pt doing better with neurontin 300 mg TID. Pt saw endo recently .Pt is on same Dm meds. Pt states that his glucose is around 120s HTN Pt has HTN, Pt t akes irbesartan 300 mg daily and his bp is still high Pt denies any chest pain or headache Pt does not check his bp at home fatigue1 Pt c/o chronic f atigue with mild polycythemia. Pt has not done home sleeps study yet DM Pt has DM Pt see s endo. Pt takes neurontin for neuropathy Pt denies any polyuria, polydipsia. Pt is on insulin. Pt is on metformin, victoza and insulin. HTN Pt has HTN Pt ta kes irbesartan 300 mg daily and his bp is borderline high. Pt does not check his bp at home Pt denies any chest pain or headache PSA Pt denies any ur inary symptoms but his PSA is treading up and his free PSA is low. HLP Pt has HLP .Pt t latrice webster. Pt denies any myalgia HTN Pt has HTN. Pt t akes irbesartan and his bp is high in office Pt denies any chest pain or headache DM Pt has Dm. pt se es endo. His glucose and A1c are improving. Pt denies any polyuria, ,polydipsia. Pt has neuropathy and he only takes neurontin BID. He had foot exam done by endo. Pt has proteinuria Pt denies any urinary symptoms polycythermia1 Pt has mild poly cythemia. Pt had negative hematology evaluation. pt does smoke. Pt denies any snoring. HLP Pt has HLP Pt ta randal webster and his lipid profile is ok physical Pt needs annual physical. Pt has DM with neuropathy. Pt sees endo and he is on invokona, basaglar and victoza and his glucose is around 120s. his A1c was 7.6 last week from endo. Pt denies any polyuria, polyuria. Pt has worsening neuropathy. Pt only takes neurontin once per night. Pt has HT, Pt takes irbesartan and his bp is stable. Pt has HLP Pt takes crestor. Pt denies any myalgia. Pt overall feels fine. Pt denies any other complaints HLP Pt has HLP. Pt t akes crestor and his lipid profile is ok. Pt denies any myalgia DM Pt has DM. Pt ta kes invokona, metformin ,victoza and insulin and his A1c is much improved. Pt denies any polyuria, polypodia. Pt takes neurontin which is helping his neuropathy. HTN Pt has HTN Pt ta kes irbesartan and his bp is stable. Pt denies any chest pain or headache HLP Pt has HLP ,Pt t akes crestor and he denies any myalgia. HTN Pt has HTN. Pt t akes irbesartan but he is out. His bp is borderline high today Pt has not been checking his bp at home. Pt denies any chest pain or headache DM Pt has DM. Pt sa w endo. Pt takes metformin, insulin 65 units now and invokona, and victoza. Pt states that his glucose is around 100 .Pt denies any polyuria, polydipsia Pt c/o mild numbness and tingling both feet physical Pt needs annual physical Pt has poorly controlled DM Pt denies any polyuria, polydipsia. Pt states that his glucose is around 150s. His A1c is over 150. His bp is borderline today on irbesartan. He has not been checking his bp at home. Pt has mild proteinuria. Pt feels mildly fatigue .Pt denies any snoring .Pt denies any neuropathy. DM Pt moved away an d just moved back recently. He was seeing a doctor in [facility] and he was taken off losartan and zocor Pt denies any myalgia Pt has very mild neuropathy both feet .Pt denies any cold extremity. He has not done lab for a while .Pt was told that his bp was low so losartan was removed. Pt overall feels ok HTN Pt has HTn. his bp is high today. He was stopped losartan for unknown reason. He denies any chest pain or headache HLP Pt has HLP Pt orr s not been taking zocor Pt denies any myalgia. tobacco1 Pt quit smoking recently Pt denies any sob, hemoptyses, or cough DM Pt has DM pt maria e es basaglar and also metformin and his BG is around 200. His A1c is over 12. Pt has mild polyuria, polydipsia. Pt denies any neuropathy HTN Pt has HTn, Pt t akes losartan and BP stable shoulder pain1 Pt has chronic r ight shoulder pain Pt denies any injury .Ultrasound shoed rotator cuff tear. tobacco Pt has tobacco h istory PHysical Pt needs annual physical pt has DM pt takes lantus and metformin. pt states that his glucose is around 250s but he has been out of insulin for a while Pt denies any polyuria, polydipsia. He states that his glucose was around 200 even when he was on metformin 850 bid and also lantus. Pt has HLP Pt was on zocor and fenofibrate and he has not had above for over one year. pt moved away and just recently moved back. Pt told me he was never prescribed any cholesterol meds while away. Pt also was only on losartan and his doctor took him off the norvas His BP has been normal except when he did the [employer] physical. and his BP was 160/90s Pt failed the physical due to above pt denies any chest pain or headache Pt was on losartan when he had physical done but now he is out of losartan and his BP is actually normal in office. Pt also lost close to 50 pounds Pt changed his diet slightly but he is not intentionally losing weight. He denies any appetite issue, nausea, vomiting, diarrhea, blood in stool, etc. Pt c/o right shoulder pain for 2 months Pt denies any injury. He states that he has sharp pain when he moves his right shoulder, He denies any radiculopathy or neck pain HLP Pt has HLP. Pt t akes zocor and feno. Pt denies any myalgia HTN Pt takes losarta n and norvasc. His BP is borderline high. Pt denies any chest pain or headache DM Pt takes metfomr in and lantus and trulicity. Pt sees endo. His BG is around 200 per patient. Pt denies any hypolglycemia Pt denies any polyuria polydipsia Physical Pt needs annual physical. pt has DM Pt sees endo at [facility] and his A1c is down to 8.1. Pt takes feno and zocor. Pt denies any myalgia, Pt takes losartan and norvac and his BP is stable. Pt denies any chest pain Pt also had negative cardiac stress test. Pt denies any chest pain Pt overall feels well. HLP Pt has HLP. Pt t akes feno and zocor and doing ok. Pt denies any myalgia hTN Pt takes losarta n and norvasc and his BP is stable. Pt denies any chest pain, headache DM Pt takes metfomr in, lantus and trulicity now. Pt sees endo. His BG is around 160s now. pt denies any hypoglycemia, polyuria polydipsia back pain1 Pt c/o low back pain with left sciatica since last week. Pt notices mild numnbess left leg. Pt denies any loss of bowel or bladder control. Pt denies any injury. Pt denies any pain now. Pt went to ER and was prescribed muscle relaxant and had CT done DM Pt has DM. Pt is on lantus 65 units at night and also metformin 1000 mg BID Pt is seeing endo. Pt was started on byetta but insurance did not cover it. Pt basically is just taking metformin and lantus now Pt states that his BG Is around 200. Pt denies any polyuria, polydipsia HLP Pt has HLP. Pt t akes zocor and feno. Pt denies any myalgia. Pt is on low fat and low carb diet HTN Pt takes losarta n and norvasc. his BP Is stable Pt denies any chest pain or headache HLP: Pt takes zocor a nd feno. His cholesterol is good. Pt denies any myalgia DM Pt has poorly co ntrolled DM. Pt works outside and he does not eat regularly. pt sometimes skip apidra. pt takes metformin, lantus and apidra. His BG is around 250s. His A1c is 11. HTN Pt takes norvasc and losartan and his BP is stable. Pt denies any chest pain or headache HLP Pt takes feno an d zocor. Pt denies any myalgia. Pt is on low fat and low carb diet DM Pt has DM. Pt ta kes metformin and lantus and apidra. Pt states that his BG is around 150s now. Pt denies any hypoglycemia. Pt deneis any polyuria, polydipsia DM Pt has been taki ng lantus 65 units, metformin and also apidra and his BG is still around 250s. Pt denies any polyuria, polydipsia. Pt denies any hypglycemia HTN Pt takes losarta n and also norvasc and his BP is stable. Pt denies any swelling HLP Pt has HLP. Pt t akes feno and zocor. Pt denies any myalgia. Pt is trying low fat and low carb diet Physical Pt needs annual physical. pt has very poorly controlled DM. His Bg is around 300. Pt is not very compliant with diet. His TG is high. Pt also has elevated H&H and low vitamin D. Pt takes losaratn and norvasc and his BP is high today. Pt denies any complaints. Pt overall feels well. HLP1 Pt has HLP. Pt t akes zocor. Pt denies any mylagia HTN1 Pt has HTN. Pt r un out of norvasc Pt takes losartan only. His BP is slightly high. Pt denies any chest pain or headahe DM1 Pt has DM. Pt ta kes lantus and apidra. His BG is around 120s. Pt denies any numnbess. Pt denies any polyuria, polydipsia DM1 Pt takes lantus and apidra. Pt states that his BG is around 150 at home. His A1c is 8.7. Pt denies any hypoglycemia. Pt denies any polyuria, polydipsia abscess1 Pt has large lef t groin abscess. pt recieved IV rocephine in hospital over the weekend but he left AMA. Pt c/o pain and drainage left groin area. NO fever HTN1 Pt has HTN. Pt t akes losartan and his BP is high. Pt denies any chest pain or headache DM Pt has DM. Pt ta kes lantus 55 units qhs and also apidra. Pt states that his BG is around 140s. Pt recently seen ophthalmology and exam normal benign. Pt denies any numnbes foot pain Location: foot. Additional information: PT c/o left heel pain. Pt has heel spur and plantar fascinitis per ortho per patient. Pt was given some exercise and naproxen. Pt states that the exercise has not helped. Pt denies any injury. Pt states that ultram and naproxen combination helps his pain. HTN Pt is taking los bailey 100 mg daily. His BP is still borderline elevated. Pt denies any chest pain or heaeache heel spur Pt has left heel pain, getting worse lately. Pt denies any injury. HTN Pt has HTN. Pt d enies any chest pain or headahe HLP Pt has HLP. Pt t latrice zocor. Pt denies any m yalgia DM Pt has DM. Pt is taking lantus and apidra. Pt states that his BG is around 150s. His A1c is better. Pt denies any hypglycemia DM Pt has been dorcas pfeiffer lantus 50 units qhs but he has not been taking apidra. He states that his BG average around 150 now. Pt denies any hypoglycemia episodes HLP Pt has been takhemal pfeiffer zocor. Pt denies any myalgia heel pain Additional infor mation: Pt c/o persistent left heel pain. No injury. No redness. Instructions Date Instruction Additional Infor mation Special diet education Related t o Body mass index (BMI) 30.0-30.9, adult Prescribed Activity and Exercise Education Related to Dietary Surveillance and Counseling Prescribed Diet Educ ation/Lifestyle Education Regarding Diet Related to Dietary Surveillance and Counseling Check blood sugar twice a day. R elated to Type 2 diabetes mellitus without complications Increase physical activity. Rela benja to Type 2 diabetes mellitus without complications Prescribed Diet Educ ation/Lifestyle Education Regarding Diet Related to Dietary Surveillance and Counseling Prescribed Activity and Exercise Education Related to Dietary Surveillance and Counseling Prescribed Diet Educ ation/Lifestyle Education Regarding Diet Related to Dietary Surveillance and Counseling Prescribed Activity and Exercise Education Related to Dietary Surveillance and Counseling Prescribed Diet Educ ation/Lifestyle Education Regarding Diet Related to Dietary Surveillance and Counseling Prescribed Activity and Exercise Education Related to Dietary Surveillance and Counseling Prescribed Diet Educ ation/Lifestyle Education Regarding Diet Related to Dietary Surveillance and Counseling Prescribed Activity and Exercise Education Related to Dietary Surveillance and Counseling Prescribed Activity and Exercise Education Related to Dietary Surveillance and Counseling Prescribed Diet Educ ation/Lifestyle Education Regarding Diet Related to Dietary Surveillance and Counseling Prescribed Activity and Exercise Education Related to Dietary Surveillance and Counseling Prescribed Diet Educ ation/Lifestyle Education Regarding Diet Related to Dietary Surveillance and Counseling Prescribed Activity and Exercise Education Related to Dietary Surveillance and Counseling Prescribed Diet Educ ation/Lifestyle Education Regarding Diet Related to Dietary Surveillance and Counseling Prescribed Activity and Exercise Education Related to Dietary Surveillance and Counseling Prescribed Diet Educ ation/Lifestyle Education Regarding Diet Related to Dietary Surveillance and Counseling Prescribed Diet Educ ation/Lifestyle Education Regarding Diet Related to Dietary Surveillance and Counseling Prescribed Activity and Exercise Education Related to Dietary Surveillance and Counseling Prescribed Activity and Exercise Education Related to Dietary Surveillance and Counseling Prescribed Diet Educ ation/Lifestyle Education Regarding Diet Related to Dietary Surveillance and Counseling Prescribed activity/ exercise education Related to Dietary surveillance and counseling Special diet education Related t o Dietary surveillance and counseling Decrease caloric intake Related to Dietary surveillance counseling Physical activity counseling Rel ated to Dietary surveillance counseling Physical activity counseling Rel ated to Dietary surveillance counseling Decrease caloric intake Related to Dietary surveillance counseling Decrease caloric intake Related to Dietary surveillance counseling Physical activity counseling Rel ated to Dietary surveillance counseling Assessments Type Assessment Date No Information
--- OUTSIDE RECORDS SUMMARY | 2025-03-25 17:03 | XMS_ITS | Referral Summary ---
Author Organization [facility] Address [address] [place] [id number] Care Team Providers Care Continuous [employer] Supervisor Name Role Phone Isael Galdamez MD Primary Care Provider [phone] Encounters Date Type Department Care Team Description 03/24/2025 7:05 PM CDT - 03/24/2025 11:21 PM CDT Emergency [address] [phone] Discharge Disposition: Left without being seen 02/22/2025 Telephone [facility] Diabetes [facility] Endocrinology [address] [place] [address] [phone] Angela Mg NP Prior Auth (Ozempic/) 02/16/2025 Orders Only [facility]ocr[facility] [address] [place] [phone] ProviderKedar MD 02/11/2025 9:00 AM CDT Office Visit [facility] Medical [facility] Diabetes [facility] Endocrinology [address] [place] [address] [phone] Angela Mg NP Type 2 diabetes mellitus with hyperglycemia, with long-term current use of insulin (HCC) (Primary Dx); Hypertension associated with type 2 diabetes mellitus (HCC); Hyperlipidemia associated with type 2 diabetes mellitus (HCC); Diabetic peripheral neuropathy (HCC) from Last 3 Months Allergies No known active allergies Medications aspirin 81 mg enteric coated tablet Take 1 tablet (81 mg total) by mouth daily 11/27/2016 Active pen needle, diabetic (Pen Needle) 31 gauge x 5/16 needle Use to inject 1-4 times daily as directed 100 each 11 01/16/2022 Active blood glucose diagnostic (glucose blood) strip Check blood sugar 2 times a day or as directed 200 each 3 08/22/2022 Active senna 8.6 mg tablet 03/12/2024 Active omeprazole (PriLOSEC) 40 mg capsuleIndicati ons:Peptic ulcer disease Take 1 capsule (40 mg total) by mouth daily 90 capsule 3 06/07/2024 06/07/20 25 Active HYDROcodone-alma delia taminophen (NORCO) 5-325 mg per tablet Take 1 tablet by mouth every 6 (six) hours as needed 03/12/2024 Active gabapentin (NEURONTIN) 300 mg capsuleIndicati ons:Diabetic peripheral neuropathy (HCC) Take 1 capsule (300 mg total) by mouth every morning AND 2 capsules (600 mg total) nightly AND 1 capsule (300 mg total) with lunch. 360 capsule 3 02/11/2025 02/12/20 26 Active semaglutide (OZEMPIC) 1 mg/dose (4 mg/3 mL) pen injector injectionIndica tions:type 2 diabetes mellitus Inject 1 mg under the skin every 7 days 9 mL 3 02/11/2025 02/12/20 26 Active canagliflozin (Invokana) 300 mg tabletIndicatio ns:Type 2 diabetes mellitus with hyperglycemia, with long-term current use of insulin (HCC) Take 1 tablet (300 mg total) by mouth daily 90 tablet 3 02/11/2025 Active metFORMIN (GLUCOPHAGE) 1,000 mg tabletIndicatio ns:Type 2 diabetes mellitus with hyperglycemia, with long-term current use of insulin (HCC) Take 1 tablet (1,000 mg total) by mouth 2 (two) times a day with meals 180 tablet 3 02/11/2025 Active rosuvastatin (CRESTOR) 10 mg tabletIndicatio ns:Hyperlipidem ia associated with type 2 diabetes mellitus (HCC) Take 1 tablet (10 mg total) by mouth daily 90 tablet 3 02/11/2025 02/12/20 26 Active irbesartan (AVAPRO) 300 mg tabletIndicatio ns:Hypertension associated with type 2 diabetes mellitus (HCC) Take 1 tablet (300 mg total) by mouth daily 90 tablet 3 02/11/2025 02/12/20 26 Active amLODIPine (NORVASC) 10 mg tabletIndicatio ns:hypertension Take 1 tablet (10 mg total) by mouth daily 90 tablet 3 02/11/2025 02/12/20 26 Active BASAGLAR 100 unit/mL (3 mL) pen for injectionIndica tions:Type 2 diabetes mellitus with hyperglycemia, with long-term current use of insulin (HCC) Inject 50 Units under the skin nightly 45 mL 3 02/11/2025 02/12/20 26 Active Active Problems Problem Noted Date Diagnosed Date Diabetic peripheral neuropathy 09/25/2023 Assessment & Plan (02/11/2025 9:11 AM CDT): Chronic problem. Currently taking Gabapentin 300mg qam & 600mg qhs. Worsening neuropathy. Added 300mg at noon. Will now take 300mg every morning & noon, 600mg at HS. Reviewed foot care; needs to lotion daily. Aware to check feet nightly, not to go barefoot. Assessment & Plan (10/08/2024 9:21 AM REINSURANCE CLAIM ANALYST): Chronic problem. Currently taking Gabapentin 300mg qam & 600mg qhs. Reviewed foot care; needs to lotion daily. Aware to check feet nightly, not to go barefoot. Assessment & Plan (06/07/2024 9:29 AM CDT): Chronic problem. Currently taking Gabapentin 300mg qam & 600mg qhs. Reviewed foot care; needs to lotion daily. Aware to check feet nightly, not to go barefoot. Assessment & Plan (04/05/2024 3:19 PM CDT): Chronic problem. Currently taking Gabapentin 300mg qam & 600mg qhs. Aware to check feet nightly & not go barefoot. Assessment & Plan (03/05/2024 10:20 AM CDT): Chronic problem. Currently taking Gabapentin 300mg qam & 600mg qhs. Aware to check feet nightly & not go barefoot. Assessment & Plan (09/25/2023 9:41 AM REINSURANCE CLAIM ANALYST): Chronic problem. Currently taking Gabapentin 300mg qam & 600mg qhs. Aware to check feet nightly & not go barefoot. BMI 29.0-29.9,adult 12/12/2022 Assessment & Plan (12/12/2022 2:01 PM REINSURANCE CLAIM ANALYST): Discussed healthy diet and importance of regular physical activity (20- 30min/day, 150min/wk). Falling episodes 08/22/2022 Assessment & Plan (08/22/2022 1:07 PM CDT): New onset, 2 episodes. May be neuropathy related (loss of proprioception). He's also having new onset difficulty sleeping. We discussed options including seeing neurology, he prefers to f/u with PCP at this time and will call to schedule with him. Hypertension associated with type 2 diabetes marilynn litus 02/21/2022 Assessment & Plan (02/11/2025 9:02 AM CDT): Chronic problem. Currently taking Amlodipine 10 mg daily, irbesartan 300mg daily. Assessment & Plan (10/08/2024 9:41 AM REINSURANCE CLAIM ANALYST): Chronic problem. BP elevated upon rooming & again on recheck. Currently taking Amlodipine 10 mg daily; has been out of Irbesartan >1mo . Will take as soon as he picks up today. Stressed need to stop smoking. Assessment & Plan (06/07/2024 9:32 AM CDT): Chronic problem. BP elevated upon rooming & again on recheck. Currently taking irbesartan 300mg daily & amlodipine 5mg daily. Stressed need to stop smoking. Increased amlodipine from 5mg to 10mg daily. Assessment & Plan (04/05/2024 3:40 PM CDT): Chronic problem. BP elevated upon rooming & again on recheck. Currently taking irbesartan 300mg daily & amlodipine 5mg daily. Stressed need to stop smoking. Assessment & Plan (03/05/2024 10:30 AM CDT): Chronic problem. Controlled on current irbesartan 300mg daily & amlodipine 5mg daily Assessment & Plan (09/25/2023 9:45 AM REINSURANCE CLAIM ANALYST): Chronic problem. Not at goal. BP elevated upon rooming & again at recheck. Currently taking irbesartan 300mg daily & amlodipine 5mg daily (started 2 wks ago). Reviewed red flags. To stop in pharmacy/PCP office to recheck BP. Will update labs today. Does not mychart. Verified phone #/address to contact re: results. Assessment & Plan (06/10/2023 9:23 AM CDT): Chronic problem. Not at goal. Saw PCP 02/2023 & irbesartan increased from 150mg to 300mg daily. BP elevated upon rooming & again at recheck. Reviewed red flags. To stop in pharmacy/PCP office to recheck BP. Has appt w/Dr Galdamez next week. Will address elevated BP. Assessment & Plan (12/12/2022 2:36 PM REINSURANCE CLAIM ANALYST): Chronic problem, typically well controlled on current irbesartan 150mg daily. Elevated upon arrival & at recheck at end of appt. Has been out of medication x 9-10 days. Refilled at this time. Will take when he picks up on way home. No changes at this time. Assessment & Plan (08/22/2022 1:05 PM CDT): Chronic problem, improved on recheck. No medication changes. Assessment & Plan (02/21/2022 9:27 AM CDT): Controlled on current medications, no changes. Hyperlipidemia associated with type 2 diabetes darrell long 10/11/2021 Assessment & Plan (02/11/2025 9:02 AM CDT): Chronic problem. Controlled on current rosuvastatin 10mg daily. Last lipid panel 10/08/24 KFI=678, RT=485. Assessment & Plan (10/08/2024 9:22 AM REINSURANCE CLAIM ANALYST): Chronic problem. Controlled on current rosuvastatin 10mg daily. Last lipid panel 09/25/23 LDL=58, MO=262. Will update labs today. Does not mychart. Verified phone #/address to contact re: results. Assessment & Plan (06/07/2024 9:09 AM CDT): Chronic problem. Controlled on current rosuvastatin 10mg daily. Last lipid panel 09/25/23 LDL=58, VG=551. Assessment & Plan (04/05/2024 3:19 PM CDT): Chronic problem. Controlled on current rosuvastatin 10mg daily. Last lipid panel 09/25/23 LDL=58, UZ=442. Assessment & Plan (03/05/2024 10:19 AM CDT): Chronic problem. Controlled on current rosuvastatin 10mg daily. Last lipid panel 09/25/23 LDL=58, AO=052. Assessment & Plan (09/25/2023 9:45 AM REINSURANCE CLAIM ANALYST): Chronic problem. Well controlled on current rosuvastatin 10mg daily. Last lipid panel 08/22/22: LDL=78, EJ=139. Will update labs today. Does not mychart. Verified phone #/address to contact re: results. Assessment & Plan (06/10/2023 9:06 AM CDT): Chronic problem. Well controlled on current rosuvastatin 10mg daily. Last lipid panel 08/22/22: LDL=78, VN=250. No changes at this time. Assessment & Plan (12/12/2022 2:19 PM REINSURANCE CLAIM ANALYST): Chronic problem. Well controlled on current rosuvastatin 10mg daily. Last lipid panel 08/22/22: LDL=78, RP=086. Has been out of medication x 9-10 days. Refilled at this time. Reviewed diet recommendations. No changes at this time. Assessment & Plan (08/22/2022 9:34 AM CDT): Chronic problem. On statin therapy, no changes. Assessment & Plan (02/21/2022 9:37 AM CDT): Chronic problem. On statin therapy, no changes. Assessment & Plan (10/11/2021 2:02 PM REINSURANCE CLAIM ANALYST): Check lipid profile Adjust dose of Crestor as indicated Type 2 diabetes mellitus wit h hyperglycemia, with long-term current use of insulin 07/12/2021 Assessment & Plan (02/11/2025 9:20 AM CDT): Chronic problem, near goal. A1c improved from 8.7% 10/08/24 to now 7.1%. Current medications: Metformin 1000mg twice daily with meals Invokana 300mg daily Ozempic 1mg weekly Basaglar 50 units nightly UTD on labs. DM eye exam 08/2024 [facility] in [place]. 2nd request letter sent to get copy of report. Strive for regular exercise (30min most days) and diet (get at least 4-5 servings of fruit and veggies daily, avoid processed foods, increase lean protein intake and decrease carb portions as well as fruit juices, regular soda & desserts). Watch carbs and simple sugars. Check the blood sugar: daily. Check the feet daily for skin breakdown and infection. Assessment & Plan (10/08/2024 9:42 AM REINSURANCE CLAIM ANALYST): Chronic problem, A1c worsened from 7.2% 06/07/24 to now 8.7%. has greatly fallen off diet. Reviewed worsening of A1c. Relates that he will improve diet. Current medications: Metformin 1000mg twice daily with meals Invokana 300mg daily Ozempic 1mg weekly Basaglar 50 units nightly Will update labs today. Does not mychart. Verified phone #/address to contact re: results. To call to set up DM eye exam (last 11/2021) Strive for regular exercise (30min most days) and diet (get at least 4-5 servings of fruit and veggies daily, avoid processed foods, increase lean protein intake and decrease carb portions as well as fruit juices, regular soda & desserts). Watch carbs and simple sugars. Check the blood sugar: daily. Check the feet daily for skin breakdown and infection. Assessment & Plan (06/07/2024 9:29 AM CDT): Chronic problem, A1c improved greatly from 9.9% 04/05/24 to now 7.2%. Increase ozempic to 1mg weekly. Pay close attention to your blood sugars. If blood sugars lower/starting to have hypoglycemia--lower your basaglar by 2 units weekly. Current medications: Metformin 1000mg twice daily with meals Invokana 300mg daily Ozempic 1mg weekly Basaglar 50 units nightly UTD on labs. To call to set up DM eye exam (last 11/2021) Strive for regular exercise (30min most days) and diet (get at least 4-5 servings of fruit and veggies daily, avoid processed foods, increase lean protein intake and decrease carb portions as well as fruit juices, regular soda & desserts). Watch carbs and simple sugars. Check the blood sugar: daily. Check the feet daily for skin breakdown and infection. Assessment & Plan (04/05/2024 4:16 PM CDT): Chronic problem, A1c uncontrolled at 11.9% 03/05/24 and improved to now 9.9%. discussed option of moving up ozempic dose but he prefers to wait until next appt to see how much lower he can get A1c without any futher changes. Current medications: Metformin 1000mg twice daily with meals Invokana 300mg daily Ozempic 0.5mg weekly Basaglar 50 units nightly UTD on labs. To call to set up DM eye exam (last 11/2021) Strive for regular exercise (30min most days) and diet (get at least 4-5 servings of fruit and veggies daily, avoid processed foods, increase lean protein intake and decrease carb portions as well as fruit juices, regular soda & desserts). Watch carbs and simple sugars. Check the blood sugar: daily. Check the feet daily for skin breakdown and infection. Assessment & Plan (03/05/2024 11:07 AM CDT): Chronic problem, A1c uncontrolled at 8.1% 09/25/23 and worsened to now 11.9%. recently dx'd w/prostate ca & surgery canceled when A1c found to be 12.6%. (had stopped meds >1mo, wasn't taking care of himself). Has since resumed meds & greatly improved diet (since 02/26/24). A1c has improved to 11.9%. Stop victoza. Start ozempic 0.25mg weekly x 2 weeks then increase to 0.5mg weekly. Make f/u appt 04/05/24 to recheck A1c. Current medications: Metformin 1000mg twice daily with meals Invokana 300mg daily ozempic 0.25mg weekly x 2 weeks then increase to 0.5mg weekly. Basaglar 50 units nightly UTD on labs. To call to set up DM eye exam (last 11/2021) Strive for regular exercise (30min most days) and diet (get at least 4-5 servings of fruit and veggies daily, avoid processed foods, increase lean protein intake and decrease carb portions as well as fruit juices, regular soda & desserts). Watch carbs and simple sugars. Check the blood sugar: daily. Check the feet daily for skin breakdown and infection. Assessment & Plan (09/25/2023 9:34 AM REINSURANCE CLAIM ANALYST): Chronic problem, uncontrolled but improved from 9.1% to now 8.1% Out of vicotza at time of appointment. Current medications: Metformin 1000 mg twice daily Invokana 300 mg Victoza 1.8 mg daily Basaglar 50 units at bedtime Will update labs today. Will update labs today. Does not mychart. Verified phone #/address to contact re: results. To call to set up DM eye exam (last 11/2021) Strive for regular exercise (30min most days) and diet (get at least 4-5 servings of fruit and veggies daily, avoid processed foods, increase lean protein intake and decrease carb portions as well as fruit juices, regular soda & desserts). Watch carbs and simple sugars. Check the blood sugar at least 2 times/wk. Check the feet daily for skin breakdown and infection. Assessment & Plan (06/10/2023 9:27 AM CDT): Chronic problem, uncontrolled & worsened from 7.6%. to now 9.1%. Has not been taking basaglar nor victoza (misses more than half the doses). Aware that he needs to resume both. Reviewed end organ damage from uncontrolled diabetes. Current medications: Metformin 1000 mg twice daily Invokana 300 mg Victoza 1.8 mg Basaglar 50 units at bedtime UTD on labs. Had labs by PCP 2 wks ago; release signed to get copy of results. To call to set up DM eye exam. Strive for regular exercise (30min most days) and diet (get at least 4-5 servings of fruit and veggies daily, avoid processed foods, increase lean protein intake and decrease carb portions as well as fruit juices, regular soda & desserts). Watch carbs and simple sugars. Check the blood sugar at least 2 times/wk. Check the feet daily for skin breakdown and infection. Assessment & Plan (12/12/2022 2:37 PM REINSURANCE CLAIM ANALYST): Chronic problem, not at goal but improved from 8.6% 07/2022 to now 7.6%. Current medications: Metformin 1000 mg twice daily Invokana 300 mg Victoza 1.8 mg Basaglar 50 units at bedtime has DM eye exam scheduled 02/07/23. Asked him to have report sent to our office. Reviewed dietary/exercise recommendations. Instructed to perform daily foot check. Assessment & Plan (08/22/2022 1:06 PM CDT): Chronic problem, not at goal. His FBG are in good range and he is a fairly light eater during the day with an active job so likely pD readings are high. Would avoid SFU given risk of lows when active and his recent falls. Best option is to add mealtime insulin aD but he declines this today, he does not want to add any more medications. He will start checking CBGs twice daily and work on dinner options to see if he can lower A1c with lifestyle. Update routine labs. Assessment & Plan (02/21/2022 9:44 AM CDT): Chronic problem, stable. Continue same medications. As he gets more active in the summer, watch for low blood sugars and decrease Basaglar by 5-10 units which he is comfortable doing. Reviewed foot care, he can try increasing low dose gabapentin to BID dosing for breakthrough symptoms if needed. Assessment & Plan (10/11/2021 2:01 PM REINSURANCE CLAIM ANALYST): Hba1c was Lab Results Component Value Date HGBA1C 7.7 10/11/2021 today, indicating suboptimal DM control with morning hypos Goal Hba1c and blood glucose explained Diet and exercise were advised Prevention and treatment of hyypoglcyemia were discussed with the patient Blood glucose monitoring : bid Adjustment to medications: Lower Basaglar 50 unit hs Continue Invokana, Increase Victoza 1.8 mg daily Assessment & Plan (07/12/2021 9:45 AM CDT): Hba1c was Lab Results Component Value Date HGBA1C 8.5 (A) 07/12/2021 today, indicating ... DM control Goal blood sugars in the 120-150 range , with Hb1c under 7.0 % was explained 1800 calorie, consistent carb diet recommended. No more than 30-45 grams of carbs per meal recommended, as well as avoiding high concentrated sweet drinks . 25-45 min daily exercise, combining both aerobic and resistance exercise recommended. The need to monitor blood glucose before meals and bedtime was discussed. Prevention and treatment of hyypoglcyemia discussed. Lower Lantus to 60 units at bedtime Start Victoza, 0.6 mg nightly , x 2 weeks, then continue with 1.2 mg nightly Start Invokana, 300 mg tab in the morning Stay on Metformin If morning sugars start dropping under 100, lower Lantus by 10 units. Family history of heart disease 11/27/2016 Overview (08/22/2022): both parents Obesity 11/27/2016 Sleep apnea 11/27/2016 Tobacco dependence syndrome 11/27/2016 Polycythemia 02/15/2016 Pain in limb 02/28/2015 Vitamin D deficiency 01/31/2015 Immunizations Immunization Administration Dates Next Due Influenza, Quadrivalent, Split, Intramuscular Influenza, Unspecified 10/03/2016,11/23/2012 Pneumococcal Polysaccharide PPV23 11/23/2012 ZOSTER Recombinant 06/25/2022 Social History Tobacco Use Types Packs/Day Years [...] on file Legal Sex Male 12:34 PM REINSURANCE CLAIM ANALYST Gender Identity Not on file Sexual Orientation Not on file Last Filed Vital Signs Vital Sign Reading Time Taken Comments Blood Pressure 175/90 03/24/2025 9:37 PM CDT Pulse 79 03/24/2025 9:37 PM CDT Temperature 36.9 C (98.4 F) 03/24/2025 7:06 PM CDT Respiratory Rate 16 03/24/2025 9:37 PM CDT Oxygen Saturation 99% 03/24/2025 9:37 PM CDT Inhaled Oxygen Concentration - - Weight 94.8 kg (209 lb) 03/24/2025 7:06 PM CDT Height 177.8 cm (5' 10) 02/11/2025 8:47 AM CDT Body Mass Index 29.99 02/11/2025 8:47 AM CDT Plan of Treatment Not on file Procedures Procedure Name Priority Date/Time Associated Diagnosis Comments POCT GLUCOSE Routine 02/11/2025 8:49 AM CDT Type 2 diabetes mellitus with hyperglycemia, with long-term current use of insulin ([facility]) POCT HEMOGLOBIN A1C Routine 02/11/2025 8 :49 AM CDT Type 2 diabetes mellitus with hyperglycemia, with long-term current use of insulin ([facility]) LIPID PANEL Routine 10/08/2024 8:00 AM REINSURANCE CLAIM ANALYST Type 2 diabetes mellitus with hyperglycemia, with long-term current use of insulin ([facility]) Hyperlipidemia associated with type 2 diabetes mellitus (HCC) ALBUMIN CREATININE RATIO, URINE Routine 10/08/2024 8:00 AM REINSURANCE CLAIM ANALYST Type 2 diabetes mellitus with hyperglycemia, with long-term current use of insulin (HCC) HM DIABETES EYE EXAM Routine 08/20/2024 7:31 AM CDT EGFR Routine 09/25/2023 9:27 AM REINSURANCE CLAIM ANALYST Type 2 diabetes mellitus with hyperglycemia, with long-term current use of insulin (HCC) Hypertension associated with type 2 diabetes mellitus (HCC) PSA, TOTAL Routine 05/19/2021 9:21 AM CDT from Last 3 Months or Most Recently Relevant to Health Maintenance Results * (ABNORMAL) POCT hemoglobin A1c (02/11/2025 8:49 AM CDT) Hemoglobin A1C, POC 7.1 4.0 - 5.6 % Blood 02/11/2025 8:49 AM CDT us Angela Mg CRYPTOLOGIC SUPPORT SPECIALIST POINT OF CARE TEST ORDERA BLES Final Result * (ABNORMAL) POCT glucose (02/11/2025 8:49 AM CDT) Glucose Blood, POC 127 mg/dL Blood 02/11/2025 8:49 AM CDT us Angela Mg CRYPTOLOGIC SUPPORT SPECIALIST POINT OF CARE TEST ORDERA BLES Final Result * (ABNORMAL) Albumin Creatinine Ratio, Urine (10/08/2024 8:00 AM REINSURANCE CLAIM ANALYST) Albumin Ur 81.7 mg/L Comment: Interpretive Data No reference range established. Current interpretive data was last revised 2019. Creatinine Ur 51.9 mg/dL [facility]BDON Comment: Interpretive Data No reference range established. Current interpretive data was last revised 2019. Albumin Creatinine Ratio, Ur 157(H) 1 - 29 mg/g [facility] Urine 10/08/2024 8:00 AM REINSURANCE CLAIM ANALYST 10/08/2024 5:17 PM REINSURANCE CLAIM ANALYST us Angela Mg NP LAB URINE ORDERABLES Beverly l Result ABDON [id number] [address] Department of Laboratories [place] [id number] * (ABNORMAL) Lipid panel (10/08/2024 8:00 AM REINSURANCE CLAIM ANALYST) Cholesterol 163 30 - 199 mg/dL Comment: Interpretive Data Ages < or = 19 years Acceptable: <170 mg/dL Borderline high: 170-199 mg/dL High: >or= 200 mg/dL Ages > or = 20 years Desirable: <200 mg/dL Borderline high: 200-239 mg/dL High: >or= 240 mg/dL Literature References: 1. Expert Panel on Integrated Guidelines for Cardiovascular Health and Risk Reduction in Children and Adolescents. Pediatrics 2011;128:S213 2. NCEP Expert Panel. Circulation 2004;110:227 Current Interpretive Data was last revised on 2018. Triglycerides 136 <=149 mg/dL ABDON DAVIDSON Comment: Interpretive Data Ages < or = 9 years Acceptable: <75 mg/dL Borderline high: 75-99 mg/dL High: >or= 100 mg/dL Ages 10 to 20 years Acceptable: <90 mg/dL Borderline high: 90-129 mg/dL High: >or= 130 mg/dL Ages > or = 20 years Desirable: <150 mg/dL Borderline high: 150-199 mg/dL High: 200-499 mg/dL Very high: >or= 499 mg/dL Literature References: 1. Expert Panel on Integrated Guidelines for Cardiovascular Health and Risk Reduction in Children and Adolescents. Pediatrics 2011;128:S213 2. NCEP Expert Panel. Circulation 2004;110:227 Current Interpretive Data was last revised on 2018. HDL 37(L) >=40 mg/dL ABDON DAVIDSON Comment: Interpretive Data Ages < or = 19 years Acceptable: >45 mg/dL Borderline low: 40-45 mg/dL Low: <40 mg/dL Ages > or = 20 years Desirable: >or= 60 mg/dL Low: <40 mg/dL Literature References: 1. Expert Panel on Integrated Guidelines for Cardiovascular Health and Risk Reduction in Children and Adolescents. Pediatrics 2011;128:S213 2. NCEP Expert Panel. Circulation 2004;110:227 Current Interpretive Data was last revised on 2018. LDL, calculated 102 <=129 mg/dL ABDON DAVIDSON Comment: Interpretive Data Ages < or = 19 years Acceptable: <110 mg/dL Borderline high: 110-129 mg/dL High: >or= 130 mg/dL Ages > or = 20 years Optimal: <100 mg/dL Near optimal: 100-129 mg/dL Borderline high: 130-159 mg/dL High: >160 mg/dL Calculated using the Rafael LDL-C estimating equation. This equation was implemented on 2024. Prior to this date LDL-C was estimated using the Friedewald equation. Literature References: 1. Expert Panel on Integrated Guidelines for Cardiovascular Health and Risk Reduction in Children and Adolescents. Pediatrics 2011;128:S213 2. NCEP Expert Panel. Circulation 2004;110:227 3. Rafael Aparicio et al. ALEX Cardiol. 2019February 24;5(5):540-548. doi: [email or web address] Current Interpretive Data was last revised on 2024. Non-HDL Cholesterol 126 mg/dL ABDON DAVIDSON Comment: Interpretive Data Ages < or = 19 years Acceptable: <120 mg/dL Borderline high: 120-144 mg/dL High: >145 mg/dL Ages > or = 20 years When triglycerides are >200 mg/dL, Non-HDL cholesterol is a secondary target of therapy with treatment goals that are 30 mg/dL greater than the LDL cholesterol target. Literature References: 1. Expert Panel on Integrated Guidelines for Cardiovascular Health and Risk Reduction in Children and Adolescents. Pediatrics 2011;128:S213 2. NCEP Expert Panel. Circulation 2004;110:227 Current Interpretive Data was last revised on 2018. Chol/HDL ratio 4 ABDON DAVIDSON Blood 10/08/2024 8:00 AM REINSURANCE CLAIM ANALYST 10/08/2024 5:17 PM REINSURANCE CLAIM ANALYST us Angela Mg NP LAB BLOOD ORDERABLES Beverly mckeon Result ABDON [id number] [place] [address] * DIABETES EYE EXAM (08/20/2024 7:31 AM CDT) Historical Provider HEALTH MAINTENANCE Final Result * eGFR (09/25/2023 9:27 AM REINSURANCE CLAIM ANALYST) eGFR 88 mL/min/1. 73 m2 ABDON DAVIDSON Comment: Interpretive Data Reference Interval Normal >/= 90 mL/min/1.73m2 Mildly decreased* 60 - 89 mL/min/1.73m2 Mildly to moderately decreased 45 - 59 mL/min/1.73m2 Moderately to severely decreased 30 - 44 mL/min/1.73m2 Severely decreased 15 - 29 mL/min/1.73m2 Kidney Failure < 15 mL/min/1.73m2 *Relative to young adult level Estimated glomerular filtration rate is determined by the 2020 CKD-EPI equation recommended by the National Kidney Foundation (A Unifying Approach to GFR Estimation: Recommendations of the NKF-ASK Task Force on Reassessing the Inclusion of Race in Diagnosing Kidney Disease, JASN 2020). The CKD-EPI equation should not be used for patients with unstable renal function and has not been validated in children and those over 70. Current interpretive data was last reviewed 2021. Blood 09/25/2023 9:27 AM REINSURANCE CLAIM ANALYST 09/25/2023 2:35 PM REINSURANCE CLAIM ANALYST Angela Mg NP LAB BLOOD ORDERABLES Beverly l Result ABDON [id number] [place] [address] * PSA, total Blood (05/19/2021 9:21 AM CDT) SCRIBED PSA, Total 1.4 <=4.0 - NA EXTERNAL LAB Blood specimen (specimen) 05/19/2021 9:21 AM CDT Historical Provider LAB BLOOD ORDERABLES Edit ed Result - Final EXTERNAL LAB from Last 3 Months or Most Recently Relevant to Health Maintenance Insurance [facility] Care Teams Continuous Weld Pipe Mill Supervisor Relationship Specialty Start Date End Date Isael Galdamez MD [address] [facility] [place] [place] [address] PCP - General Family Medicine 07/03/21
--- OUTSIDE RECORDS SUMMARY | 2025-03-25 17:03 | XMS_ITS | CONTINUITY OF CARE DOCUMENT ---
Author Name laureano tinsley Address Unknown Organization [facility] Address [address] [place] [address] Phone [phone] Care Team Providers Care Lna Name Role Phone Miles MONTGOMERY, Uzair Unavailable LISA MONTGOMERY, DONNELL Unavailable [phone] DONNELL GONZALEZ MD Unavailable [phone] PROBLEMS Condition Status Date Provider Notes Hyperlipidemia active Uzair Aquino MD HTN essential active Uzair Aquino MD Diabetes mellitus active Uzair Aquino MD FAMILY HISTORY OF HEART DISEASE active Emely Aquino MD both parents Tobacco abuse active Uzair Aquino MD ? Sleep apnea active Uzair Aquino MD Obesity active Uzair Aquino MD ENCOUNTERS Date Type Provider Location Encounter Diag nosis - In-person encounter Office Visit Uzair Aquino MD [facility] HyperlipidemiaHTN essentialDiabetes mellitusFAMILY HISTORY OF HEART DISEASETobacco abuse? Sleep apneaObesity VITAL SIGNS Date Observation Value Provider Body Mass Index (Ratio) 34.03 kg/m2 Emely Aquino MD blood pressure, cuff size regular Ke hayder Salguero blood pressure, diastolic 61 mm[Hg] Ahmet rri Noemy blood pressure, systolic 105 mm[Hg] Vickie Salguero oxygen saturation, oximetry 97 % Nina Salguero respiratory rate E&M 16 /min Nina jacques pulse rate 69 /min Nina Elke lder weight E&M 244 [lb_av] Nina Elke lder height E&M 71 [in_i] Nina Hayeshamilton martita ALLERGIES No Known Drug Allergies RESULTS Date Observation Value Provider Reference Range Interpretation Location pro brain natriuretic peptide 30.1 pg/mL [facility] 0.0 - 125.0 hemoglobin A1C, blood, as % of total hemoglobin 8.3 % [facility] 4.0 - 5.6 High HISTORY OF MEDICATION USE Medication Status Instructions Dates Provider Indications Com ments VITAMIN D3 5000 UNIT ORAL CAPSULE active ONE TAB BY MOUTH DAILY 2 Lauren Kyle LANTUS SOLUTION active 65units at bedtime 1 Nina Salguero ASPIRIN 81 MG ORAL TABLET DELAYED RELEASE active take one pill a day 1 Nina Salguero METFORMIN HCL 1000 MG ORAL TABLET active take one pill twice a day 1 Nina Salguero AMLODIPINE BESYLATE 5 MG ORAL TABLET active take one pill a day 1 Nina Salguero FENOFIBRATE 160 MG ORAL TABLET active take one pill a day 1 Nina Salguero COZAAR 100 MG ORAL TABLET active take one pill a day 1 Nina Salguero SIMVASTATIN 20 MG ORAL TABLET active take one pill a day 1 Nina Salguero SOCIAL HISTORY Date Observation Value Provider smoking status Current every day smoker H jacqueline Aquino MD smoking/tobacco cess ation, patient education and counseling yes Uzair Aquino MD social history E&M S moking History: P atient currently smokes every day. P atient has been counseled to quit. Uzair Aquino MD social history reviewed E&M revi ewed - no changes required Uzair Aquino MD number of years as a smoker 38 a Nina Salguero smoking history, tot al pack/day 1 ppd Nina Cordovanfsherier FAMILY HISTORY Family Member Condition Father Family History of Coreas dden Cardiac : Father Family History of Co ngestive Heart Failure: Father Family History of Co ronary Artery Disease: Father Family History of CV A or Stroke: Mother Family History of Co ngestive Heart Failure: Mother Family History of Co ronary Artery Disease: Mother Family History of Hy pertension: Mother Family History of Hy perlipidemia: Mother Family History of Di abetes: Mother Family History of CV A or Stroke: Mother Family History Coron vicente Heart Disease female < 65: INSURANCE PROVIDERS Payer name Policy type / Coverage type [employer] party ID [place] MEDICAID (2) Medicaid [id number] ADVANCE DIRECTIVES Name Date DISCUSSED - NO DECISION MADE TREATMENT PLAN Date Name Performer Cardiology New Patient :does not want diet pill Uzair Aquino MD Cardiology New Patient :shakila molina Uzair Aquino MD Date Name VITAMIN D, 25-HYDROX Y, LC/MS/MS HEMOGLOBIN A1c PROBNP, N TERMINAL STR - Nuclear Sleep Study Home Complete Echo HISTORY OF PROCEDURES Procedure Date Procedure Name Provider Procedure Notes S tatus Stress EKG Warner Quinteros MD complet ed Cardiolite, 2 units Uzair Aquino MD completed SPECT Images Warner Quinteros MD compl eted
--- OUTSIDE RECORDS SUMMARY | 2025-03-25 17:03 | XMS_ITS | Clinical Summary ---
Author Organization [facility] Address [address] [place] [phone] Care Team Providers Care Linux Admin Engineer Name Role Phone Isael Galdamez MD Primary Care Provider Allergies No known active allergies Medications aspirin [...] times a day with meals 180 tablet 02/11/2025 Active rosuvastatin (CRESTOR) 10 mg tabletIndicatio ns:Hyperlipidem ia associated with type 2 diabetes mellitus ([facility]) Take 1 tablet (10 mg total) by mouth daily 90 tablet 02/11/2025 02/12/20 26 Active irbesartan (AVAPRO) 300 mg tabletIndicatio ns:Hypertension associated with type 2 diabetes mellitus ([facility]) Take 1 tablet [...] barefoot. Assessment & Plan (10/08/2024 9:21 AM STEAM PRESS TENDER): Chronic problem. Currently taking Gabapentin 300mg qam [...] barefoot. Assessment & Plan (09/25/2023 9:41 AM STEAM PRESS TENDER): Chronic problem. Currently taking Gabapentin 300mg qam & 600mg qhs. Aware to check feet nightly & not go barefoot. BMI 29.0-29.9,adult 12/12/2022 Assessment & Plan (12/12/2022 2:01 PM STEAM PRESS TENDER): Discussed healthy diet and importance of regular [...] daily. Assessment & Plan (10/08/2024 9:41 AM STEAM PRESS TENDER): Chronic problem. BP elevated upon rooming & [...] daily Assessment & Plan (09/25/2023 9:45 AM STEAM PRESS TENDER): Chronic problem. Not at goal. BP elevated [...] BP. Assessment & Plan (12/12/2022 2:36 PM STEAM PRESS TENDER): Chronic problem, typically well controlled on current [...] rosuvastatin 10mg daily. Last lipid panel 10/08/24 GUT=987, IF=337. Assessment & Plan (10/08/2024 9:22 AM STEAM PRESS TENDER): Chronic problem. Controlled on current rosuvastatin 10mg daily. Last lipid panel 09/25/23 LDL=58, UE=100. Will update labs today. Does not mychart. Verified phone #/address to contact re: results. Assessment & Plan (06/07/2024 9:09 AM CDT): Chronic problem. Controlled on current rosuvastatin 10mg daily. Last lipid panel 09/25/23 LDL=58, SK=144. Assessment & Plan (04/05/2024 3:19 PM CDT): Chronic problem. Controlled on current rosuvastatin 10mg daily. Last lipid panel 09/25/23 LDL=58, LG=670. Assessment & Plan (03/05/2024 10:19 AM CDT): Chronic problem. Controlled on current rosuvastatin 10mg daily. Last lipid panel 09/25/23 LDL=58, QQ=256. Assessment & Plan (09/25/2023 9:45 AM STEAM PRESS TENDER): Chronic problem. Well controlled on current rosuvastatin 10mg daily. Last lipid panel 08/22/22: LDL=78, UD=859. Will update labs today. Does not mychart. Verified phone #/address to contact re: results. Assessment & Plan (06/10/2023 9:06 AM CDT): Chronic problem. Well controlled on current rosuvastatin 10mg daily. Last lipid panel 08/22/22: LDL=78, VW=659. No changes at this time. Assessment & Plan (12/12/2022 2:19 PM STEAM PRESS TENDER): Chronic problem. Well controlled on current rosuvastatin 10mg daily. Last lipid panel 08/22/22: LDL=78, BL=435. Has been out of medication x 9-10 days. Refilled at this time. Reviewed diet recommendations. No changes at this time. Assessment & Plan (08/22/2022 9:34 AM CDT): Chronic problem. On statin therapy, no changes. Assessment & Plan (02/21/2022 9:37 AM CDT): Chronic problem. On statin therapy, no changes. Assessment & Plan (10/11/2021 2:02 PM STEAM PRESS TENDER): Check lipid profile Adjust dose of Crestor [...] UTD on labs. DM eye exam 08/2024 [facility] in [place]. 2nd request letter sent to get copy [...] infection. Assessment & Plan (10/08/2024 9:42 AM STEAM PRESS TENDER): Chronic problem, A1c worsened from 7.2% 06/07/24 [...] infection. Assessment & Plan (09/25/2023 9:34 AM STEAM PRESS TENDER): Chronic problem, uncontrolled but improved from 9.1% [...] infection. Assessment & Plan (12/12/2022 2:37 PM STEAM PRESS TENDER): Chronic problem, not at goal but improved [...] needed. Assessment & Plan (10/11/2021 2:01 PM STEAM PRESS TENDER): Hba1c was Lab Results Component Value Date [...] in limb 02/28/2015 Vitamin D deficiency 01/31/2015 Encounters Date Type Department Care Team Description 03/24/2025 7:05 PM CDT - 03/24/2025 11:21 PM CDT Emergency [address] [address] Discharge Disposition: Left without being seen 02/22/2025 Telephone [facility] [address] [place] [phone] Angela Mg NP Prior Auth (Ozempic/) 02/16/2025 Orders Only [facility] Medical [facility] Endocr[facility]ology [address] [place] [phone] Provider, MD Kedar 02/11/2025 9:00 AM CDT Office Visit [facility] [address] [place] [phone] Angela Mg NP Type 2 diabetes mellitus with hyperglycemia, with long-term current use of insulin (HCC) (Primary Dx); Hypertension associated with type 2 diabetes mellitus (HCC); Hyperlipidemia associated with type 2 diabetes mellitus (HCC); Diabetic peripheral neuropathy (HCC) from Last 3 Months Immunizations Immunization Administration Dates Next Due Influenza, Quadrivalent, Split, Intramuscular Influenza, Unspecified 10/03/2016,11/23/2012 Pneumococcal Polysaccharide PPV23 11/23/2012 ZOSTER Recombinant 06/25/2022 Surgical History Surgery Date Site/Laterality Comments VASECTOMY TONSILLECTOMY CHOLECYSTECTOMY LAPAROSCOPIC RETROPUBIC PROSTATECTOMY 03/11/2024 Medical History Medical History Date Comments Hyperlipidemia Hypertension Type 2 diabetes mellitus (HCC) Prostate cancer (HCC) 02/23/2024 Family History Medical History Relation Name Comments Hypertension Father Diabetes Mother Hypertension Mother Stroke Mother Relation Name Status Comments Father Mother Social History Tobacco Use Types Packs/Day Years [...] on file Legal Sex Male 12:34 PM STEAM PRESS TENDER Gender Identity Not on file Sexual Orientation Not on file Obstetrics History Last Filed Vital Signs Vital Sign Reading [...] 02/11/2025 8:47 AM CDT Plan of Treatment Health Maintenance Due Date Last Done Comments Colon Cancer Screening-Colonoscopy 1965 Hepatitis C Screening 1965 DTaP/Tdap/Td Vaccine (1 - Tdap) 1975 Hepatitis B Screening 1982 Regular Well Visit/Exam 18-64 1982 Pneumococcal vaccine <65 (2 of 2 - PCV) 11/23/2013 11/23/2012 Zoster Vaccine (2 of 2) 08/20/2022 06/25/2022 Depression Screening 02/21/2023 02/21/2022 Prostate Cancer Screening-PSA 05/19/2023 05/19/2021 Covid-19 Vaccine (2023-11 5 season) 2024 05/10/2021 eGFR 09/25/2024 09/25/2023, 07/28, 02/26/2004 Influenza Vaccine (Season Ended) 2025 10/29/2018, 10/03/2016, 11/23/2012 Hemoglobin A1C 08/13/2025 02/11/2025, 09/26, 06/07/2024, Additional history exists Dilated Eye Exam 08/20/2025 08/20/2024, 11/27/2021 Albumin Creatinine Ratio, Urine 10/08/2025 10/08/2024, 09/25/2023, 08/22/2022, Additional history exists Lipid Panel 10/08/2025 10/08/2024, 08/29, 08/22/2022, Additional history exists Foot Exam 02/11/2026 02/11/2025, 02/24, 12/12/2022, Additional history exists Procedures Procedure Name Priority Date/Time Associated Diagnosis Comments POCT GLUCOSE Routine 02/11/2025 8:49 AM CDT Type 2 diabetes mellitus with hyperglycemia, with long-term current use of insulin (HCC) POCT HEMOGLOBIN A1C Routine 02/11/2025 8 :49 AM CDT Type 2 diabetes mellitus with hyperglycemia, with long-term current use of insulin (HCC) LIPID PANEL Routine 10/08/2024 8:00 AM STEAM PRESS TENDER Type 2 diabetes mellitus with hyperglycemia, with long-term current use of insulin (HCC) Hyperlipidemia associated with type 2 diabetes mellitus (HCC) ALBUMIN CREATININE RATIO, URINE Routine 10/08/2024 8:00 AM STEAM PRESS TENDER Type 2 diabetes mellitus with hyperglycemia, with long-term current use of insulin (HCC) HM DIABETES EYE EXAM Routine 08/20/2024 7:31 AM CDT EGFR Routine 09/25/2023 9:27 AM STEAM PRESS TENDER Type 2 diabetes mellitus with hyperglycemia, with long-term current use of insulin (HCC) Hypertension associated with type 2 diabetes mellitus (HCC) PSA, TOTAL Routine 05/19/2021 9:21 AM CDT from Last 3 Months or Most Recently Relevant to Health Maintenance Results * (ABNORMAL) POCT hemoglobin A1c (02/11/2025 8:49 AM CDT) Hemoglobin A1C, POC 7.1 4.0 - 5.6 % Blood 02/11/2025 8:49 AM CDT us Angelaantoinette Mg NP POINT OF CARE TEST ORDERA BLES Final Result * (ABNORMAL) POCT glucose (02/11/2025 8:49 AM CDT) Glucose Blood, POC 127 mg/dL Blood 02/11/2025 8:49 AM CDT us Angelaantoinette Mg NP POINT OF CARE TEST ORDERA BLES Final Result * (ABNORMAL) Albumin Creatinine Ratio, Urine (10/08/2024 8:00 AM STEAM PRESS TENDER) Albumin Ur 81.7 mg/L Comment: Interpretive Data No reference range established. Current interpretive data was last revised 2019. Creatinine Ur 51.9 mg/dL ABDON DAVIDSON Comment: Interpretive Data No reference range established. Current interpretive data was last revised 2019. Albumin Creatinine Ratio, Ur 157(H) 1 - 29 mg/g ABDON DAVIDSON Urine 10/08/2024 8:00 AM STEAM PRESS TENDER 10/08/2024 5:17 PM STEAM PRESS TENDER us Angela Mg NP LAB URINE ORDERABLES Beverly l Result ABDON DAVIDSON [id number] Department [place] [address] * (ABNORMAL) Lipid panel (10/08/2024 8:00 AM STEAM PRESS TENDER) Cholesterol 163 30 - 199 mg/dL Comment: [...] 3. Rafael Aparicio et al. ALEX Cardiol. 2020 February 24;5(5):540-548. doi: [email or web address] Current Interpretive Data was [...] 4 ABDON DAVIDSON Blood 10/08/2024 8:00 AM STEAM PRESS TENDER 10/08/2024 5:17 PM STEAM PRESS TENDER us Angela Mg NP LAB BLOOD ORDERABLES Beverly l Result ABDON DAVIDSON [address] Department [place] [address] * DIABETES EYE EXAM (08/20/2024 7:31 AM CDT) us Historical Provider HEALTH MAINTENANCE Final Result * eGFR (09/25/2023 9:27 AM STEAM PRESS TENDER) eGFR 88 mL/min/1. 73 m2 ABDON DAVIDSON [...] last reviewed 2021. Blood 09/25/2023 9:27 AM STEAM PRESS TENDER 09/25/2023 2:35 PM STEAM PRESS TENDER Angela Mg COOLER CONVEYOR LOADER LAB BLOOD ORDERABLES Beverly mckeon Result ABDON [address] [address] Department [place] [address] * PSA, total Blood (05/19/2021 9:21 AM CDT) SCRIBED PSA, Total 1.4 <=4.0 - NA EXTERNAL LAB Blood specimen (specimen) 05/19/2021 9:21 AM CDT us Historical Provider LAB BLOOD ORDERABLES Edit ed Result - Final EXTERNAL LAB from Last 3 Months or Most Recently Relevant to Health Maintenance Insurance [facility] Care Teams Linux Admin Engineer Relationship Specialty Start Date End Date Isael Galdamez MD [address] [place] [address] PCP - General Family Medicine 07/03/21
--- OUTSIDE RECORDS SUMMARY | 2025-03-25 17:03 | XMS_ITS | Clinical Summary ---
Author Organization [facility] Address [address], [facility] [address] [place] [address] Phone Care Team Providers Care Oral And Maxillofacial Surgery Name Role Phone Isael Galdamez Primary Care Provider [phone] Allergies No known active allergies Medications APIDRA 100 UNIT/ML Solution 10 Units by Subcutaneous route 3 times daily (before meals). 0 6 Active fenofibrate 160 MG Tablet Take 1 Tab by mouth daily. 0 6 Active LANTUS 100 UNIT/ML Solution 65 Units by Subcutaneous route nightly. 0 6 Active losartan (COZAAR) 100 MG Tablet Take 1 Tab by mouth daily. 0 6 Active metFORMIN (GLUCOPHAGE) 500 MG Tablet Take 500 mg by mouth 2 times daily. 0 6 Active amLODIPine (NORVASC) 5 MG Tablet Take 1 Tab by mouth daily. 0 6 Active simvastatin (ZOCOR) 20 MG Tablet Take 1 Tab by mouth nightly. 0 6 Active varenicline (CHANTIX) 1 MG Tablet Take 1 Tab by mouth 2 times daily. 60 Tab 1 6 Active Active Problems Problem Noted Date Diagnosed Date Polycythemia 02/15/2016 Family History Medical History Relation Name Comments Heart Disease Father Diabetes Mother Heart Disease Mother Relation Name Status Comments Father Mother Social History Tobacco Use Types Packs/Day Years Used Date Smoking Tobacco: Every Day Cigarettes 1 52.4 Started: [birth year]/27/1972 Smokeless Tobacco: Never Alcohol Use Standard Drinks/Week Comments Yes 0 (1 standard drink = 0.6 oz pur e alcohol) very little Sex and Gender Information Value Date Recorded Sex Assigned at Not on file Legal Sex Male 9:55 AM CDT Gender Identity Not on file Sexual Orientation Not on file Last Filed Vital Signs Vital Sign Reading Time Taken Comments Blood Pressure 138/82 02/29/2016 9:31 AM CDT Pulse 71 02/29/2016 9:31 AM CDT Temperature 36.7 C (98 F) 02/29/2016 9:31 AM CDT Respiratory Rate 20 02/29/2016 9:31 AM CDT Oxygen Saturation 97% 02/29/2016 9:31 AM CDT Inhaled Oxygen Concentration - - Weight 109.3 kg (241 lb) 02/29/2016 9:31 AM CDT Height 175.3 cm (5' 9) 02/29/2016 9:31 AM CDT Body Mass Index 35.59 02/29/2016 9:31 AM CDT Plan of Treatment Health Maintenance Due Date Last Done Comments Hepatitis C Virus (HCV) Screening 1965 TdaP Immunization 1965 Colonoscopy 2009 Colorectal Cancer Screening 2009 Cologuard 2014 Immunochemical Fecal Occult Blood 2014 Pneumococcal Immunization (5 0+ years) (1 of 1 - PCV) 2014 Zoster Immunization (1 of 2) 2014 Influenza Immunization (#1) 2024 SARS-COV-2 Immunization ( - 2023- season) 2024 Respiratory Syncytial Virus (RSV) Immunization (Adult) (1 - 1-dose 75+ series) 2039 Hepatitis B Immunization Aged Out No longer eligible based on patient's age to complete this topic Meningococcal Immunization (ACWY) Aged Out No longer eligible based on patient's age to complete this topic Rotavirus Immunization Aged Out No lo nger eligible based on patient's age to complete this topic Insurance MEDICAID [facility] Care Teams Oral And Maxillofacial Surgery Relationship Specialty Start Date End Date Isael Galdamez [address] [place] [address] PCP - General Family Medicine 01/23/16
--- OUTSIDE RECORDS SUMMARY | 2025-03-25 17:03 | XMS_ITS | Clinical Summary ---
Author Organization [facility] Address [address] [place] [address] Care Team Providers Care Glazier Supervisor Name Role Phone Isael Galdamez MD Primary Care Provider [phone] Source Comments [facility] [employer] [facility],non-owned Affiliates and Associated Physician Practices is amultiple site organization consisting of ambulatory clinics and hospital sitesin [place], [place], [place] and [place]. This disclosure is being madepursuant to the Care Everywhere program and may not contain all information available regarding this patient. Last updated 18.[facility] Allergies No known active allergies Medications * Be aware that medications may not be up to date on this document. Alwaysverify current medications with the patient. metFORMIN (GLUCOPHAGE) 1000 MG tablet Take 1,000 mg by mouth 2 times daily with morning and evening meal. 60 tablet 0 7 Active Additional Information Patient taking differently:1,000 mg Oral 2 TIMES DAILY WITH MEALS,Hold DOS, Reported on 02/26/2024 aspirin (ASPIRIN) 81 MG tablet Take 1 (one) tablet by mouth DAILY 7 Active insulin syringe-needle (BD ULTRAFINE II) 31G X 5/16 1 ML syringe 1 syringe DAILY. 100 Each 11 6 Active Additional Information Patient taking differently: (No dose reported)DAILY, Reported on 01/27/2024 lancets Use. 6 Active Glucose Blood (BLOOD GLUCOSE TEST STRIPS) STRP Use. 6 Active BASAGLAR KWIKPEN (BASAGLAR) pen Inject 60 (sixty) Units subcutaneously at bedtime 9 Active meloxicam (MOBIC) 15 MG tabletIndicati ons:Rotator cuff tear, non-traumatic, right Take 1 tablet by mouth once daily 30 tablet 3 0 Active Additional Information Patient not taking.Reported on 09/05/2023 amLODIPine (Norvasc) 5 MG tablet Take 1 (one) tablet by mouth once daily 4 Active Invokana 300 MG tablet 4 Active gabapentin (Neurontin) 300 MG capsule Take 1 (one) capsule by mouth 3 times daily 4 Active irbesartan (Avapro) 300 MG tablet Take 1 (one) tablet by mouth once daily 4 Active Victoza 18 MG/3ML pen ADMINISTER 1.8 MG UNDER THE SKIN DAILY FOR DIABETES 3 Active omeprazole (PriLOSEC) 40 MG capsule TAKE 1 CAPSULE BY MOUTH EVERY DAY BEFORE A MEAL 4 Active rosuvastatin (Crestor) 10 MG tablet Take 1 (one) tablet by mouth once daily 4 Active ciprofloxacin (Cipro) 500 MG tablet Take 1 (one) tablet by mouth 2 times daily for 2 doses 2 tablet 4 Active Semaglutide(0. 25 or 0.5MG/DOS) 2 MG/3ML Solution Pen-injector Inject 0.5 mg subcutaneously every 7 days 4 Active HYDROcodone-ac etaminophen (Merna) 5-325 MG tabletIndicati ons:Prostate cancer (HCC) Take 1 (one) tablet by mouth every 6 hours as needed for Pain 12 tablet 4 Active senna (Senokot) 8.6 MG tablet Take 1 (one) tablet by mouth once daily for 7 days 7 tablet 4 Active polyethylene glycol 3350 (Miralax) 17 GM/SCOOP powder Take 17 (seventeen) g by mouth once daily for 7 days 119 g 4 Active ciprofloxacin (Cipro) 500 MG tablet Take 1 (one) tablet by mouth 2 times daily for 3 days 6 tablet 4 Active HYDROcodone-ac etaminophen (Merna) 5-325 MG tabletIndicati ons:Malignant neoplasm of prostate (HCC) TAKE ONE TABLET BY MOUTH EVERY 6 HOURS NEEDED FOR PAIN 12 tablet 4 Active sennosides (Senokot) 8.6 MG tablet TAKE ONE TABLET BY MOUTH ONCE DAILY FOR 7 DAYS 7 tablet 4 Active polyethylene glycol 3350 (Miralax) 17 GM/SCOOP powder MIX AND TAKE 1 CAPFUL (17 GM) BY MOUTH ONCE DAILY 238 g Active ciprofloxacin (Cipro) 500 MG tablet TAKE ONE TABLET BY MOUTH 2 TIMES A DAY FOR 3 DAYS 6 tablet 4 Active Active Problems Problem Noted Date Diagnosed Date Prostate cancer 03/11/2024 Type 2 diabetes mellitus without complications 0 06/19/2016 Overview (01/26/2025): IMO 01/26/2025 Mixed hyperlipidemia 06/19/2016 Essential (primary) hypertension 06/19/2016 Immunizations Immunization Administration Dates Next Due INFLUENZA VACCINE 10/03/2016 Family History Medical History Relation Name Comments Heart Disease Father Diabetes Mother Heart Disease Mother Relation Name Status Comments Father Mother Social History Tobacco Use Types Packs/Day Years Used Date Smoking Tobacco: Every Day Cigarettes 1 48.4 Started: 1976 Smokeless Tobacco: Never Tobacco Cessation:Ready to Q uit: Not Asked; Counseling Given: Not Answered Alcohol Use Standard Drinks/Week Comments Not Currently 0 (1 standard drink = 0.6 oz pur e alcohol) Sex and Gender Information Value Date Recorded Sex Assigned at Not on file 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 Gender Identity Not on file Sexual Orientation Not on file Last Filed Vital Signs Vital Sign Reading Time Taken Comments Blood Pressure 94/57 03/26/2024 9:06 AM CDT Pulse 76 03/26/2024 9:06 AM CDT Temperature 36.1 C (97 F) 03/26/2024 9:06 AM CDT Respiratory Rate 16 03/12/2024 7:51 AM CDT Oxygen Saturation 96% 03/26/2024 9:06 AM CDT Inhaled Oxygen Concentration - - Weight 91.2 kg (201 lb) 03/26/2024 9:06 AM CDT Height 177.8 cm (5' 10) 03/26/2024 9:06 AM CDT Body Mass Index 28.84 03/26/2024 9:06 AM CDT Plan of Treatment Health Maintenance Due Date Last Done Comments COLOGUARD (AGES 45-75) - COLON CA SCREENING 1964 COLON MONITORING 1964 COLONOSCOPY - COLON CA SCREENING 1964 CT COLONOGRAPHY - COLON CA SCREENING 1964 Colorectal Cancer Screening 1964 FIT - COLON CA SCREENING 1964 FLEX SIG - COLON CA SCREENING 1964 HIV SCREENING 1979 HEPATITIS C SCREENING 03/11/1982 DTAP/TDAP/TD VACCINES (1 - Tdap) 1983 PNEUMOCOCCAL VACCINE 50+ (1 of 2 - PCV) 1983 LUNG CANCER SCREENING 2014 ZOSTER VACCINE (1 of 2) 2014 DIABETES RETINOPATHY SCREENING 01/26/2018 DIABETES-FOOT EXAM WITH MONOFILAMENT 01/26/2018 Respiratory Syncytial Virus (RSV) Vaccine Pt: or over 60 yrs (1 - Risk 60-74 years 1-dose series) 2024 COVID-19 VACCINE ( - season) 2024 DIABETES-HGB A1C 09/07/2024 06/07/2024, 07/2024, 03/05/2024, Additional history exists DEPRESSION SCREENING 10/27/2024 DIABETES - URINE PROTEIN SCREENING 10/27/2024 06/19/2016 DIABETES-SERUM CREATININE 02/25/20252023, 12/19/2023, 02/29/2016 INFLUENZA VACCINE (Season Ended) 2025 10/29/2018, 10/03/2016, 11/23/2012 HEPATITIS B VACCINE Aged Out No longe r eligible based on patient's age to complete this topic HIB VACCINE Aged Out No longer eligi ble based on patient's age to complete this topic HPV VACCINE Aged Out No longer eligi ble based on patient's age to complete this topic MENINGOCOCCAL (Group B) VACCINE SHARED DECISION-MAKING Aged Out No longer eligible based on patient's age to complete this topic MENINGOCOCCAL GROUPS A/C/Y/W VACCINE Aged Out No longer eligible based on patient's age to complete this topic Procedures Procedure Name Priority Date/Time Associated Diagnosis Comments HEMOGLOBIN A1C STAT 02/26/2024 9:18 AM CDT Pre-op evaluation COMPREHENSIVE METABOLIC PANEL Routine 02/26/2024 9:17 AM CDT Pre-op evaluation MICROALB/CREAT RATIO URINE RANDOM PANEL Routine 06/19/2016 10:00 AM CDT from Last 3 Months or Most Recently Relevant to Health Maintenance Results * (ABNORMAL) HEMOGLOBIN A1C [IN-HOUSE TEST] (02/26/2024 9:18 AM CDT) Hemoglobin A1c 12.6(H) <=5.6 % 02/26/2024 11:27 AM CDT [facility] Estimated Average Glucose 315 mg/dL 02/26/2024 11:27 AM CDT [facility] Comment: HbA1c Interpretation: Normal : < 5.7% Pre-diabetes: 5.7-6.4% Diabetes: Equal to or greater than 6.5% Test results diagnostic of diabetes should be repeated for confirmation. Treatment target values recommended by ADA and other clinical organizations should be used to evaluate metabolic control in patients. Reference: [place] [employer], Standards of Care in Diabetes -2020 In patients 70 years and older consider HbA1c target range of 7.0-7.5% (Reference: Kin Cavazos et al. JAMDA. 2012) The Sebia assay for the measurement of HbA1c is a National Glycohemoglobin Standardization Program (NGSP) certified method. Blood BLOOD SPECIMEN WITH EDTA / Unknown Lab Venipuncture / Unknown 02/26/2024 9:18 AM CDT 02/26/2024 9:37 AM CDT John [place] [employer] SUPERVISOR-SEARCH ENGINE OPTIMIZATION ANALYST LAB - CHEMISTRY ORDER MAO Final Result [facility] [address] [address], [facility] [phone] * (ABNORMAL) COMPREHENSIVE METABOLIC PANEL (02/26/2024 9:17 AM CDT) BUN 17 7 - 26 mg/dL 02/26/2024 10:04 AM CDT [facility] Creatinine 0.88 0.71 - 1.16 mg/dL 02/26/2024 10:04 AM CDT [facility] Sodium 137 136 - 145 mmol/L 02/26/2024 10:04 AM [facility] Potassium 4.3 3.5 - 4.5 mmol/L 02/26/2024 10:04 AM [facility] Chloride 103 98 - 107 mmol/L 02/26/2024 10:04 AM [facility] CO2 26 22 - 29 mmol/L 02/26/2024 10:04 AM [facility] Glucose 276(H) 70 - 115 mg/dL 02/26/2024 10:04 AM [facility] Calcium 9.6 8.4 - 10.2 mg/dL 02/26/2024 10:04 AM [facility] Protein Total 6.7 6.0 - 8.3 g/dL 02/26/2024 10:04 AM [facility] Albumin 3.5 3.4 - 5.0 g/dL 02/26/2024 10:04 AM [facility] Bilirubin Total 0.4 0.2 - 1.2 mg/dL 02/26/2024 10:04 AM [facility] Alkaline Phosphatase 94 40 - 150 U/L 02/26/2024 10:04 AM [facility] ALT 21 5 - 55 U/L 02/26/2024 10:04 AM [facility] AST 17 5 - 34 U/L 02/26/2024 10:04 AM [facility] Anion Gap 8 6 - 16 02/26/2024 10:04 AM [facility] BUN/Creatinine Ratio 19 7 - 23 02/26/2024 10:04 AM [facility] Osmolality Calculated 295 275 - 295 mOsm/kg 02/26/2024 10:04 AM [facility] Albumin/Globulin Ratio 1.1 1.1 - 2.3 02/26/2024 10:04 AM [facility] eGFR by CKD-EPI >90 >=90 mL/min/1.7 3 m2 02/26/2024 10:04 AM [facility] Blood BLOOD SPECIMEN / Unknown Lab Venipuncture / Unknown 02/26/2024 9:17 AM [facility] 02/26/2024 9:39 AM CDT us Hansanico Cavazos [place] [employer] SUPERVISOR-SEARCH ENGINE OPTIMIZATION ANALYST LAB - CHEMISTRY ORDER MAO Final Result [facility] [address] [place] [address], [facility] [phone] * MICROALB/CREAT RATIO URINE RANDOM PANEL (06/19/2016 10:00 AM CDT) Albumin Random Urine <5.0 Not Established mcg/mL [facility] Creatinine Urine 57 Not Established mg/dL [facility] Comment:Result obtained by madisyn barrios. Urine Albumin/Creati nine Ratio <9 <30 mg/g [facility] Albumin/Creati nine Ratio Urine See Comment <30 mg/g [facility] Comment:Unable to calculate the Urine Albumin/Creatinine Ratio due to one or more analyte concentration(s) being outside the measuring limits of the instrument. Urine specimen (specimen) URINE / Unknown 06/19/2016 10:00 AM CDT 06/19/2016 10:42 AM CDT us Mario Vasquez MD LAB - URINE CHEMISTRY ORDERABLES Final Result [facility] [address] [place], [place] [address] [phone] from Last 3 Months or Most Recently Relevant to Health Maintenance Insurance [facility] SELF PAY NO INSURANCE Member Subscriber Plan / Payer (Ef fective for All Dates) Name:Jorge Stevenson Member ID:Not on file Relation to Subscriber:Not on file Name:JORGE STEVENSON Subscriber ID:Not on file Address: [address] [place] [address] Payer ID:Not on file Group ID:Not on file Type:Self Pay Address: [place], [place] [facility] SELF PAY NO INSURANCE Member Subscriber Plan / Payer (Ef fective for All Dates) Name:Jorge Stevenson Member ID:Not on file Relation to Subscriber:Not on file Name:JORGE STEVENSON Subscriber ID:Not on file Address: [address] [place] [address] [address] [place] [address] Payer ID:Not on file Group ID:Not on file Type:Self Pay Address: [place], [place] * Guarantor: JORGE STEVENSON Account Type Relation to Patient Date of Phone Billing Address Personal/Family Spouse Advance Directives * Full Code (Latest Code Status on File) Date Activated Date Inactivated Comments 03/11/2024 12:49 PM 03/12/2024 1:08 PM Care Teams Glazier Supervisor Relationship Specialty Start Date End Date Isael Galdamez MD [address] [facility] [address] [place] [id number] PCP - General 04/25/15
[2025-03-25 17:07] VITALS: BP 151/69; PULSE 92; RESP 20; TEMP 36.4; O2SAT 95
--- OUTSIDE RECORDS SUMMARY | 2025-03-25 17:41 | XMS_ITS | Encounter Summary ---
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 Gender Identity Not on file Sexual Orientation [...] hyperglycemia, with long-term current use of insulin ([facility]) Inject 50 Units under the skin nightly 45 mL 3 02/11/2025 02/11/2026 blood glucose diagnostic (glucose blood) strip Check blood sugar 2 times a day or as directed 200 each 3 08/22/2022 canagliflozin (Invokana) 300 mg tabletIndication s:Type 2 diabetes mellitus with hyperglycemia, with long-term current use of insulin ([facility]) Take 1 tablet (300 mg total) by [...] hyperglycemia, with long-term current use of insulin ([facility]) Take 1 tablet (1,000 mg total) by [...] on filedocumented in this encounter Care Teams Head Men'S Tennis Coach Relationship Specialty Start Date End Date Isael Galdamez MD [address] [place] [address] PCP - General Family Medicine 07/03/21 documented as of this encounter
--- OUTSIDE RECORDS SUMMARY | 2025-03-25 17:41 | XMS_ITS | Continuity of Care Document ---
Author Organization [facility] Address [address] [place] [address] Phone Care Team Providers Care Floral Artist Name Role Phone Isael Galdamez MD Unavailable Unavailable Allergies, Adverse Reactions, Alerts Substance Reaction Status Criticality No Known Allergies Active No Inform ation Medications Medication Instructions Dosage Effective Dates (start - stop) Status Comments omeprazole 40 mg capsule,delayed release take 1 capsule by oral route every day before a meal 40 MG - Active Cymbalta 30 mg capsule,delayed release take 1 capsule by oral route every day 30 MG - Active Neurontin 300 mg capsule take 1 capsule by oral route 3 times every day - Active avoid driving or operate machines Norvasc 5 mg tablet take 1 tablet by oral route every day 5 MG - Active irbesartan 300 mg tablet take 1 tablet by oral route every day 300 MG - Active metformin 1,000 mg tablet take 1 tablet by oral route 2 times every day with morning and evening meals 1000 MG - Active Crestor 10 mg tablet take 1 tablet by oral route every day 10 MG - Active Invokana 300 mg tablet take 1 tablet by oral route every day before the first meal of the day 300 MG - Active Victoza 2-Jerardo 0.6 mg/0.1 mL (18 mg/3 mL) subcutaneous pen injector inject 0.2 Milliliter by subcutaneous route every day 1.2 MG - Active Basaglar KwikPen U-100 Insulin 100 unit/mL (3 mL) subcutaneous inject by subcutaneous route as per insulin protocol 0.00 - Active 60 units SC at night pen needle, diabetic 31 gauge x 1/4 [...] Diagnoses Date Provider Providers Copied on Encounter [facility], [address] [place] [address] Melisa Cavazos, [place], [address], [place] tel:[phone] [facility] No Information 4 Rudolph Kirkland. [address], [place], [place], [address] , [place]. tel:[phone] PREV VISIT, EST, AGE 40-64 [facility], [address], [place], [place], [address], [place] [phone] [facility] Medicine physical (chief complaint) Encounter for general adult medical examination without abnormal findings 4 Rudolph Kirkland. [address], [place], [place], [address] , [place]. tel:[phone] OFFICE/OUTPA TIENT VISIT, [facility], [address], [place], [place], [address], [place] tel:[phone] [facility] gastric ulcer1 (chief complaint) HTN (chief complaint) HLP (chief complaint) PSA (chief complaint) Acute gastric ulcer without hemorrhage or perforationEssentia l (primary) hypertensionElevate d prostate specific antigen [PSA]Mixed hyperlipidemia 4 Rudolph Kirkland. [address], [place], [place], [address] , [place]. tel:[phone] OFFICE/OUTPA TIENT VISIT, EST [facility], [address], [place], [place], [address], [place] tel:[phone] [facility] abd pain1 (chief complaint) tobacco1 (chief complaint) Acute gastric ulcer without hemorrhage or perforationEsophagi tisTobacco use 4 Rudolph Kirkland. [address], [place], [place], [address] , [place]. tel:[phone] OFFICE/OUTPA TIENT VISIT, EST [facility], [address], [place], [place], [address], [place] tel:[phone] [facility] Medicine abd pain1 (chief complaint) HTN (chief complaint) Abnormal weight lossGeneralized abdominal painEssential (primary) hypertension 4 Rudolph Kirkland. [address], [place], [place], [address] , [place]. tel:[phone] OFFICE/OUTPA TIENT VISIT, EST [facility], [address], [place], [place], [address], [place] tel:[phone] [facility] PSA (chief complaint) fatigue1 (chief complaint) HTN (chief complaint) DM (chief complaint) Elevated prostate specific antigen [PSA]Essential (primary) hypertensionTobacco useType 2 diabetes mellitus with diabetic mononeuropathyFatig ue 3 Rudolph Kennedy [address], [place], [place], [address] , [place]. tel: [phone] OFFICE/OUTPA TIENT VISIT, [facility], [address], [place], [place], [address], [place] tel:[phone] [facility] PSA (chief complaint) HTN (chief complaint) fatigue1 (chief complaint) DM (chief complaint) HLP (chief complaint) Essential (primary) hypertensionElevate d prostate specific antigen [PSA]Mixed hyperlipidemiaSecon vasquez polycythemiaType 2 diabetes mellitus with diabetic mononeuropathyTobac co use 3 Rudolph Kennedy [address], [place], [place], [address] , [place]. tel:[phone] OFFICE/OUTPA TIENT VISIT, [facility], [address], [place], [place], [address], [place] tel:[phone] [facility] HTN (chief complaint) DM (chief complaint) polycyther mia1 (chief complaint) HLP (chief complaint) Essential (primary) hypertensionType 2 diabetes mellitus with diabetic nephropathySecondar y polycythemiaMixed hyperlipidemiaEleva benja prostate specific antigen [PSA] 3 Rudolph Kennedy [address], [place], [place], [address] , [place]. tel:[phone] PREV VISIT, EST, AGE 40-64 [facility], [address], [place], [place], [address], [place] tel:[phone] [facility] physical (chief complaint) Encounter for general adult medical examination without abnormal findings 3 Rudolph Kirkland. [address], [place], [place], [address] , [place]. tel:[phone] OFFICE/OUTPA TIENT VISIT, EST [facility], [address], [place], [place], [address], [place] tel:[phone] [facility] HLP (chief complaint) DM (chief complaint) HTN (chief complaint) Essential (primary) hypertensionHyperli pidemiaType 2 diabetes mellitus with diabetic mononeuropathy 2 Rudolph Kirkland. [address], [place], [place], [address] , [place]. tel:[phone] OFFICE/OUTPA TIENT VISIT, [facility], [address], [place], [place], [address], [place] tel:[phone] [facility] HLP (chief complaint) DM (chief complaint) HTN (chief complaint) Essential (primary) hypertensionHyperli pidemiaType 2 diabetes mellitus with diabetic mononeuropathyTobac co use 1 Rudolph Kirkland. [address], [place], [place], [address] , [place]. tel:[phone] PREV VISIT, EST, AGE 40-64 [facility], [address], [place], [place], [address], [place] tel:[phone] [facility] Medicine physical (chief complaint) Encounter for general adult medical examination without abnormal findings 1 Rudolph Kirkland. [address], [place], [place], [address] , [place]. [phone] OFFICE/OUTPA TIENT VISIT, EST [facility], [address], [place], [place], [address], [place] tel:[phone] [facility] Medicine DM (chief complaint) tobacco1 (chief complaint) HTN (chief complaint) HLP (chief complaint) HyperlipidemiaEssen tial (primary) hypertensionTobacco useType 2 diabetes mellitus with diabetic mononeuropathySecon vasquez polycythemia 1 Rudolph Kennedy [address], [place], [place], [address] , [place]. [phone] OFFICE/OUTPA TIENT VISIT, EST [facility], [address], [place], [place], [address], [place] tel:[phone] [facility] Medicine DM (chief complaint) HTN (chief complaint) shoulder pain1 (chief complaint) tobacco (chief complaint) Essential (primary) hypertensionPain in right shoulderSecondary polycythemiaHyperli pidemiaTobacco useType 2 diabetes mellitus without complications 9 Rudolph Kennedy [address], [place], [place], [address] , [place]. [phone] Referring Provider: [address], [place], [place], [address]. tel:[phone] PREV VISIT, EST, AGE 40-64 [facility], [address], [place], [place], [address], [place] tel:[phone] [facility] PHysical (chief complaint) Encntr for general adult medical exam w/o abnormal findings 9 Rudolph Bern[address], [place], [place], [address] , [place]. [phone] Referring Provider: [address], [place], [place], [address]. tel:[phone] OFFICE/OUTPA TIENT VISIT, EST [facility], [address], [place], [place], [address], [place] tel:[phone] [facility] Medicine HLP (chief complaint) HTN (chief complaint) DM (chief complaint) Type 2 diabetes mellitus without complicationsEssent ial (primary) hypertensionMixed hyperlipidemiaEncou nter for screening for other viral diseases 7 Rudolph Kennedy [address], [place], [place], [address] , [place]. [phone] Referring Provider: Florecita Ari[address], [place], [place], [address]. tel:[phone] PREV VISIT, EST, AGE 40-64 [facility], [address], [place], [place], [address], [place] tel:[phone] [facility] Physical (chief complaint) Encounter for general adult medical exam w abnormal findingsEssential (primary) hypertensionMixed hyperlipidemiaType 2 diabetes mellitus without complications 0- 7 Rudolph Kirkland. [address], [place], [place], [address] , [place]. [phone] Referring Provider: Florecita Ari[address], [place], [place], [address]. tel:[phone] OFFICE/OUTPA TIENT VISIT, [facility], [address], [place], [place], [address], [place] tel:[phone] [facility] HLP (chief complaint) hTN (chief complaint) DM (chief complaint) Mixed hyperlipidemiaEssen tial (primary) hypertensionType 2 diabetes mellitus without complicationsFamily history of ischemic cardiac disease 7 Rudolph Kirkland. [address], [place], [place], [address] , [place]. [phone] Referring Provider: [address], [place], [place], [address]. tel:[phone] OFFICE/OUTPA TIENT VISIT, [facility], [address], [place], [place], [address], [place] tel:[phone] [facility] DM (chief complaint) HLP (chief complaint) HTN (chief complaint) back pain1 (chief complaint) Mixed hyperlipidemiaEssen tial (primary) hypertensionType 2 diabetes mellitus without complicationsLumbag o with sciatica, left side Jul-0 6 Rudolph Kennedy [address], [place], [place], [address] , [place]. [phone] Referring Provider: Florecita Arias [address], [place], [place], [address]. tel:[phone] OFFICE/OUTPA TIENT VISIT, EST [facility], [address], [place], [place], [address], [place] tel:[phone] [facility] DM (chief complaint) HLP: (chief complaint) Mixed hyperlipidemiaType 2 diabetes mellitus without complications Apr-0 6 Rudolph Kirkland. [address], [place], [place], [address] , [place]. tel:[phone] Referring Provider: Florecita Arias [address], [place], [place], [address]. tel:[phone] OFFICE/OUTPA TIENT VISIT, [facility], [address], [place], [place], [address], [place] tel:[phone] [facility] DM (chief complaint) HTN (chief complaint) HLP (chief complaint) Mixed hyperlipidemiaEssen tial (primary) hypertensionType 2 diabetes mellitus without complicationsSecond vicente polycythemia Carlito- 6 Rudolph Kennedy [address], [place], [place], [address] , [place]. tel:[phone] Referring Provider: [address], [place], [place], [address]. tel:[phone] OFFICE/OUTPA TIENT VISIT, [facility], [address], [place], [place], [address], [place] tel:[phone] [facility] DM (chief complaint) HTN (chief complaint) HLP (chief complaint) Type 2 diabetes mellitus without complicationsMixed hyperlipidemiaEssen tial (primary) hypertensionBody mass index (BMI) 34.0-34.9, adult Jan-2 6 Rudolph Kennedy [address], [place], [place], [address] , [place]. [phone] Referring Provider: Florecita Arias [address], [place], [place], [address]. tel:[phone] PREV VISIT, EST, AGE 40-64 [facility], [address], [place], [place], [address], [place] tel:[phone] [facility] Physical (chief complaint) Encounter for general adult medical exam w abnormal findingsType 2 diabetes mellitus without complicationsMixed hyperlipidemiaEssen tial (primary) hypertension Dec- 6 Rudolph Kirkland. [address], [place], [place], [address] , [place]. tel:[phone] Referring Provider: Isael Galdamez, [address], [place], [place], [address]. tel:[phone] OFFICE/OUTPA TIENT VISIT, [facility], [address], [place], [place], [address], [place] tel:[phone] [facility] Medicine HLP1 (chief complaint) HTN1 (chief complaint) DM1 (chief complaint) Essential (primary) hypertensionMixed hyperlipidemiaType 2 diabetes mellitus w/o complication 5 Rudolph Kirkland. [address], [place], [place], [address] , [place]. tel:[phone] Referring Provider: Florecita Arias [address], [place], [place], [address]. tel:[phone] OFFICE/OUTPA TIENT VISIT, [facility], [address], [place], [place], [address], [place] tel:[phone] [facility] Medicine HTN1 (chief complaint) DM1 (chief complaint) abscess1 (chief complaint) Cutaneous abscess of groinType 2 diabetes mellitus w/o complicationEssenti al (primary) hypertensionMixed hyperlipidemia 5 Rudolph Kirkland. [address], [place], [place], [address] , [place]. tel:[phone] Referring Provider: Florecita Arias [address], [place], [place], [address]. tel:[phone] OFFICE/OUTPA TIENT VISIT, [facility], [address], [place], [place], [address], [place] tel:[phone] [facility] HTN (chief complaint) foot pain (chief complaint) DM (chief complaint) Dietary surveillance and counselingPain in limbUnspecified essential hypertensionBrittle diabetesBMI 36.0 to 36.9 5 Rudolph Kirkland. [address], [place], [place], [address] , [place]. tel:[phone] Referring Provider: [address], [place], [place], [address]. tel:[phone] OFFICE/OUTPA TIENT VISIT, [facility], [address], [place], [place], [address], [place] tel:[phone] [facility] DM (chief complaint) HLP (chief complaint) HTN (chief complaint) heel spur (chief complaint) Unspecified essential hypertensionOther and unspecified hyperlipidemiaBritt le diabetesDietary surveillance and counseling 5 Rudolph Kennedy [address], [place], [place], [address] , [place]. [phone] Referring Provider: [address], [place], [place], [address]. tel:[phone] OFFICE/OUTPA TIENT VISIT, [facility], [address] [place], [address], [place] tel:[phone] [facility] DM (chief complaint) heel pain (chief complaint) HLP (chief complaint) Dietary surveillance and counselingOther hemoglobinopathiesH yperlipidemiaPain in limbBrittle diabetes 5 Rudolph Kennedy [address], [place], [place], [address] , [place]. [phone] Referring Provider: [address], [place], [place], [address]. tel:[phone] OFFICE/OUTPA TIENT VISIT, [facility], [address] [place] [place], [address], [place] tel:[phone] [facility] DM (chief complaint) HLP (chief complaint) HTN (chief complaint) heel pain (chief complaint) ED (chief complaint) Dietary surveillance and counselingDiabetes Mellitus, Adult Onset, UncontrolledOther and unspecified hyperlipidemiaHyper tension, UnspecifiedPain in limb 5 Rudolph Kirkland. [address] [place], [address] , . [phone] Referring Provider: [facility]ita [facility]as [facility] [place], [place], [address]. tel:[phone] OFFICE/OUTPA TIENT VISIT, [facility], [address] [place], [address], [place] [phone] [facility] Medicine DM (chief complaint) HLP (chief complaint) vitamin D (chief complaint) elevated H&H (chief complaint) Dietary surveillance and counselingDiabetes Mellitus, Adult Onset, UncontrolledOther and unspecified hyperlipidemiaUnspe cified vitamin d deficiencyOther hemoglobinopathies 5 Rudolph Kennedy [address], [place], [place], [address] , [place]. [phone] Referring Provider: Florecita Arias [address] [facility] [place], [address]. tel:[phone] PREV VISIT, NEW, AGE 40-64 [facility], [address] [place], [address], [place] [phone] [facility] Physical (chief complaint) Dietary surveillance and counselingRoutine Medical ExamRoutine Medical Exam 5 Rudolph Kirkland. [address] [place], [place], [address] , [place]. tel:[phone] Family History Family Member Type Diagnosis Age At Onset Mother Problem (finding) Coronary artery disease 66 Father Problem (finding) Coronary artery disease 66 Sister Problem (finding) Alive and well Payers Payer name Insurance type Covered constitution party ID Authoriza tion(s) No Information Social [...] ordered Referral Referred To: Ambrosio Nolasco [address] [facility]
[address] [place], [place], [phone] Ordered: Referrals: Allopathic & Osteopathic Physicians : [...] ordered Referral Referred To: Junito Jimenez [address] [place], [place], [phone] Ordered: Referrals: Allopathic & Osteopathic Physicians : Internal Medicine : Endocrinology, Diabetes & Metabolism. Junito Jimenez. Evaluate and treat ordered Referral Referred To: Bernard Mobley [address], [place], [phone] Ordered: Referrals: Allopathic & Osteopathic Physicians : Orthopaedic Surgery. Bernard Mobley. Evaluate and treat ordered Referral Ordered: US EXAM, EXTREMITY ordered Referral Ordered: LISSETH MARCH (related to Family history of ischemic cardiac disease) ordered Referral Referred To: LISSETH MARCH [address] [place], [place], [phone] Ordered: Referrals: LISSETH MARCH. Evaluate and treat ordered Referral Ordered: Junito Jimenez (related to Type 2 diabetes mellitus without complications) ordered Referral Referred To: Junito Jimenez [address] [place], [phone] Ordered: Referrals: Junito Jimenez. Evaluate and treat ordered Referral Ordered: Hematology (related to Encounter for general adult medical exam w abnormal findings) ordered Referral Ordered: Natalee Palomino (related to Encounter for general adult medical exam w abnormal findings) ordered Referral Ordered: Referrals: Hematology. Evaluate and treat ordered Referral Referred To: Natalee Palomino [address] [facility]
[address] [place], [place], [phone] Ordered: Referrals: Natalee Palomino. Evaluate and treat [...] with prostate CA Pt sees urology at [facility]. Pt also had PET scan done last [...] ok HLP Pt has HLP pt ta lolis crestor .pt denies any myalgia PSA Pt has elevated PSA Pt denies any urinary symptoms Pt is seeing urology and he will do MRI of prostate next month abd pain1 Pt c/o intermitt ent dull [...] but he has not started it yet. tobacco1 Pt has 40 pack y ear [...] .Pt denies any chest pain or headache HTN Pt has HTN, Pt t akes irbesartan 300 mg daily and his bp is still high Pt denies any chest pain or headache Pt does not check his bp at home DM Pt has DM with n europathy pt doing better with neurontin 300 mg TID. Pt saw endo recently .Pt is on same Dm meds. Pt states that his glucose is around 120s PSA Pt has elevated PSA. Pt denies any urinary symptoms Pt saw urology and he will do MRI of prostate soon fatigue1 Pt has chronic f atigue Pt snores. Pt has magda for sleep study next month fatigue1 Pt c/o chronic f atigue with mild polycythemia. Pt has not done home sleeps study yet DM Pt has DM Pt see s endo. Pt takes neurontin for neuropathy Pt denies any polyuria, polydipsia. Pt is on insulin. Pt is on metformin, victoza and insulin. HLP Pt has HLP .Pt t latrice webster. Pt denies any myalgia PSA Pt denies any ur inary symptoms but his PSA is treading up and his free PSA is low. HTN Pt has HTN Pt ta randal irbesartan 300 mg daily and his bp is borderline high. Pt does not check his bp at home Pt denies any chest pain or headache HTN Pt has HTN. Pt t latrice irbesartan and his bp is high in [...] any snoring. HLP Pt has HLP Pt delia webster and his lipid profile is ok [...] akes crestor and he denies any myalgia. DM Pt has DM. Pt sa w endo. Pt takes metformin, insulin 65 units now and invokona, and victoza. Pt states that his glucose is around 100 .Pt denies any polyuria, polydipsia Pt c/o mild numbness and tingling both feet HTN Pt has HTN. Pt t akes irbesartan but he is out. His bp is borderline high today Pt has not been checking his bp at home. Pt denies any chest pain or headache physical Pt needs annual physical Pt has [...] recently. He was seeing a doctor in [facility] and he was taken off losartan and [...] pt has DM [facility] and his A1c is down to 8.1. [...] now. pt denies any hypoglycemia, polyuria polydipsia DM Pt has DM. Pt is on [...] Pt denies any chest pain or headache back pain1 Pt c/o low back pain with left sciatica since last week. Pt notices mild numnbess left leg. Pt denies any loss of bowel or bladder control. Pt denies any injury. Pt denies any pain now. Pt went to ER and was prescribed muscle relaxant and had CT done DM Pt has poorly co ntrolled DM. Pt works outside and he does not eat regularly. pt sometimes skip apidra. pt takes metformin, lantus and apidra. His BG is around 250s. His A1c is 11. HLP: Pt takes zocor a nd feno. His cholesterol is good. Pt denies any myalgia DM Pt has DM. Pt ta kes metformin and lantus and apidra. Pt states that his BG is around 150s now. Pt denies any hypoglycemia. Pt deneis any polyuria, polydipsia HTN Pt takes norvasc and losartan and his BP is stable. Pt denies any chest pain or headache HLP Pt takes feno an d zocor. Pt denies any myalgia. Pt is on low fat and low carb diet HLP Pt has HLP. Pt t akes feno and zocor. Pt denies any myalgia. Pt is trying low fat and low carb diet DM Pt has been taki ng lantus 65 units, metformin and also apidra and his BG is still around 250s. Pt denies any polyuria, polydipsia. Pt denies any hypglycemia HTN Pt takes losarta n and also norvasc and his BP is stable. Pt denies any swelling Physical Pt needs annual physical. pt has [...] any numnbess. Pt denies any polyuria, polydipsia HTN1 Pt has HTN. Pt t akes losartan and his BP is high. Pt denies any chest pain or headache DM1 Pt takes lantus and apidra. Pt states that his BG is around 150 at home. His A1c is 8.7. Pt denies any hypoglycemia. Pt denies any polyuria, polydipsia abscess1 Pt has large lef t groin abscess. pt recieved IV rocephine in hospital over the weekend but he left AMA. Pt c/o pain and drainage left groin area. NO fever HTN Pt is taking los bailey 100 mg daily. His BP is still borderline elevated. Pt denies any chest pain or heaeache foot pain Location: foot. Additional information: PT c/o left heel pain. Pt has heel spur and plantar fascinitis per ortho per patient. Pt was given some exercise and naproxen. Pt states that the exercise has not helped. Pt denies any injury. Pt states that ultram and naproxen combination helps his pain. DM Pt has DM. Pt ta kes lantus 55 units qhs and also apidra. Pt states that his BG is around 140s. Pt recently seen ophthalmology and exam normal benign. Pt denies any numnbes DM Pt has DM. Pt is taking lantus and apidra. Pt states that his BG is around 150s. His A1c is better. Pt denies any hypglycemia HLP Pt has HLP. Pt t akphil zocor. Pt denies any m yalgia HTN Pt has HTN. Pt d enies any chest pain or headahe heel spur Pt has left heel pain, getting worse lately. Pt denies any injury. heel pain Additional infor mation: Pt c/o persistent left heel pain. No injury. No redness. HLP Pt has been takhemal pfeiffer zocor. Pt denies any myalgia DM Pt has been takhemal ng lantus 50 units qhs but he has not been taking apidra. He states that his BG average around 150 now. Pt denies any hypoglycemia episodes Instructions Date Instruction Additional Infor mation Special [...] Type 2 diabetes mellitus without complications Prescribed Activity and Exercise Education Related to [...] caloric intake Related to Dietary surveillance counseling Assessments Type Assessment Date No Information
--- OUTSIDE RECORDS SUMMARY | 2025-03-25 17:41 | XMS_ITS | Clinical Summary ---
Author Organization [facility] Address [address], [facility] [address] [place] [address] Phone Care Team Providers Care Criminal Justice Program Director Name Role Phone Isael Galdamez Primary Care Provider [phone] Allergies No known active allergies Medications APIDRA [...] age to complete this topic Insurance MEDICAID [facility] Care Teams Criminal Justice Program Director Relationship Specialty Start Date End Date Isael Galdamez [address] [place] [address] PCP - General Family Medicine 01/23/16
--- OUTSIDE RECORDS SUMMARY | 2025-03-25 17:41 | XMS_ITS | Referral Summary ---
Author Organization [facility] Address [address] [place] [phone] Care Team Providers Care Embroidery Machine Operator Name Role Phone Isael Galdamez MD Primary Care Provider [phone] Encounters Date Type Department Care Team Description 03/24/2025 7:05 PM CDT - 03/24/2025 11:21 PM CDT Emergency [address] [phone] Discharge Disposition: Left without being seen 02/22/2025 Telephone [facility] Medical [facility] Diabetes and Endocrinology [address] [place] [phone] Angela Mg NP Prior Auth (Ozempic/) 02/16/2025 Orders Only [facility] Diabetes and Endocrinology [address] [place] [phone] ProviderKedar MD 02/11/2025 9:00 AM CDT Office Visit [facility] Medical [facility] Diabetes and Endocrinology [address] [place] [address] [phone] Angela Mg NP Type 2 diabetes mellitus [...] barefoot. Assessment & Plan (10/08/2024 9:21 AM SENIOR COMMISSIONS ANALYST): Chronic problem. Currently taking Gabapentin 300mg [...] barefoot. Assessment & Plan (09/25/2023 9:41 AM SENIOR COMMISSIONS ANALYST): Chronic problem. Currently taking Gabapentin 300mg qam & 600mg qhs. Aware to check feet nightly & not go barefoot. BMI 29.0-29.9,adult 12/12/2022 Assessment & Plan (12/12/2022 2:01 PM SENIOR COMMISSIONS ANALYST): Discussed healthy diet and importance of [...] daily. Assessment & Plan (10/08/2024 9:41 AM SENIOR COMMISSIONS ANALYST): Chronic problem. BP elevated upon rooming [...] daily Assessment & Plan (09/25/2023 9:45 AM SENIOR COMMISSIONS ANALYST): Chronic problem. Not at goal. BP [...] BP. Assessment & Plan (12/12/2022 2:36 PM SENIOR COMMISSIONS ANALYST): Chronic problem, typically well controlled on [...] rosuvastatin 10mg daily. Last lipid panel 10/08/24 AKX=070, BD=801. Assessment & Plan (10/08/2024 9:22 AM SENIOR COMMISSIONS ANALYST): Chronic problem. Controlled on current rosuvastatin 10mg daily. Last lipid panel 09/25/23 LDL=58, NR=835. Will update labs today. Does not mychart. Verified phone #/address to contact re: results. Assessment & Plan (06/07/2024 9:09 AM CDT): Chronic problem. Controlled on current rosuvastatin 10mg daily. Last lipid panel 09/25/23 LDL=58, MC=609. Assessment & Plan (04/05/2024 3:19 PM CDT): Chronic problem. Controlled on current rosuvastatin 10mg daily. Last lipid panel 09/25/23 LDL=58, GN=784. Assessment & Plan (03/05/2024 10:19 AM CDT): Chronic problem. Controlled on current rosuvastatin 10mg daily. Last lipid panel 09/25/23 LDL=58, AC=392. Assessment & Plan (09/25/2023 9:45 AM SENIOR COMMISSIONS ANALYST): Chronic problem. Well controlled on current rosuvastatin 10mg daily. Last lipid panel 08/22/22: LDL=78, WG=916. Will update labs today. Does not mychart. Verified phone #/address to contact re: results. Assessment & Plan (06/10/2023 9:06 AM CDT): Chronic problem. Well controlled on current rosuvastatin 10mg daily. Last lipid panel 08/22/22: LDL=78, EA=686. No changes at this time. Assessment & Plan (12/12/2022 2:19 PM SENIOR COMMISSIONS ANALYST): Chronic problem. Well controlled on current rosuvastatin 10mg daily. Last lipid panel 08/22/22: LDL=78, JA=815. Has been out of medication x 9-10 days. Refilled at this time. Reviewed diet recommendations. No changes at this time. Assessment & Plan (08/22/2022 9:34 AM CDT): Chronic problem. On statin therapy, no changes. Assessment & Plan (02/21/2022 9:37 AM CDT): Chronic problem. On statin therapy, no changes. Assessment & Plan (10/11/2021 2:02 PM SENIOR COMMISSIONS ANALYST): Check lipid profile Adjust dose of [...] UTD on labs. DM eye exam 08/2024 [facility] in [place]. 2nd request letter sent to get copy [...] infection. Assessment & Plan (10/08/2024 9:42 AM SENIOR COMMISSIONS ANALYST): Chronic problem, A1c worsened from 7.2% [...] infection. Assessment & Plan (09/25/2023 9:34 AM SENIOR COMMISSIONS ANALYST): Chronic problem, uncontrolled but improved from [...] infection. Assessment & Plan (12/12/2022 2:37 PM SENIOR COMMISSIONS ANALYST): Chronic problem, not at goal but [...] needed. Assessment & Plan (10/11/2021 2:01 PM SENIOR COMMISSIONS ANALYST): Hba1c was Lab Results Component Value [...] on file Legal Sex Male 12:34 PM SENIOR COMMISSIONS ANALYST Gender Identity Not on file Sexual [...] hyperglycemia, with long-term current use of insulin ([facility]) POCT HEMOGLOBIN A1C Routine 02/11/2025 8 :49 AM CDT Type 2 diabetes mellitus with hyperglycemia, with long-term current use of insulin ([facility]) LIPID PANEL Routine 10/08/2024 8:00 AM SENIOR COMMISSIONS ANALYST Type 2 diabetes mellitus with hyperglycemia, with long-term current use of insulin ([facility]) Hyperlipidemia associated with type 2 diabetes mellitus (HCC) ALBUMIN CREATININE RATIO, URINE Routine 10/08/2024 8:00 AM SENIOR COMMISSIONS ANALYST Type 2 diabetes mellitus with hyperglycemia, with long-term current use of insulin (HCC) HM DIABETES EYE EXAM Routine 08/20/2024 7:31 AM CDT EGFR Routine 09/25/2023 9:27 AM SENIOR COMMISSIONS ANALYST Type 2 diabetes mellitus with hyperglycemia, [...] 02/11/2025 8:49 AM CDT us Angela Mg VEGETABLE FARMING SUPERVISOR POINT OF CARE TEST ORDERA BLES Final Result * (ABNORMAL) POCT glucose (02/11/2025 8:49 AM CDT) Glucose Blood, POC 127 mg/dL Blood 02/11/2025 8:49 AM CDT us Angela Mg VEGETABLE FARMING SUPERVISOR POINT OF CARE TEST ORDERA BLES Final Result * (ABNORMAL) Albumin Creatinine Ratio, Urine (10/08/2024 8:00 AM SENIOR COMMISSIONS ANALYST) Albumin Ur 81.7 mg/L Comment: Interpretive Data No reference range established. Current interpretive data was last revised 2019. Creatinine Ur 51.9 mg/dL ABDON Comment: Interpretive Data No reference range established. Current interpretive data was last revised 2019. Albumin Creatinine Ratio, Ur 157(H) 1 - 29 mg/g ABDON Urine 10/08/2024 8:00 AM SENIOR COMMISSIONS ANALYST 10/08/2024 5:17 PM SENIOR COMMISSIONS ANALYST us Angela Mg NP LAB URINE ORDERABLES Beverly l Result ABDON [address] [address] Department of Laboratories [place] [id number] * (ABNORMAL) Lipid panel (10/08/2024 8:00 AM SENIOR COMMISSIONS ANALYST) Cholesterol 163 30 - 199 mg/dL [...] 4 ABDON DAVIDSON Blood 10/08/2024 8:00 AM SENIOR COMMISSIONS ANALYST 10/08/2024 5:17 PM SENIOR COMMISSIONS ANALYST us Angela Mg NP LAB BLOOD ORDERABLES Beverly mckeon Result ABDON [address] [address] Department [place] [address] * DIABETES EYE EXAM (08/20/2024 7:31 AM CDT) Historical Provider HEALTH MAINTENANCE Final Result * eGFR (09/25/2023 9:27 AM SENIOR COMMISSIONS ANALYST) eGFR 88 mL/min/1. 73 m2 ABDON [...] last reviewed 2021. Blood 09/25/2023 9:27 AM SENIOR COMMISSIONS ANALYST 09/25/2023 2:35 PM SENIOR COMMISSIONS ANALYST Angela Mg NP LAB BLOOD ORDERABLES Beverly l Result ABDON [address] [address] Department [place] [address] * PSA, total Blood (05/19/2021 9:21 AM CDT) SCRIBED PSA, Total 1.4 <=4.0 - NA EXTERNAL LAB Blood specimen (specimen) 05/19/2021 9:21 AM CDT Historical Provider LAB BLOOD ORDERABLES Edit ed Result - Final EXTERNAL LAB from Last 3 Months or Most Recently Relevant to Health Maintenance Insurance [facility] Care Teams Embroidery Machine Operator Relationship Specialty Start Date End Date Isael Galdamez MD [address] [employer] [facility] [employer] [facility] [facility] [place] [address] PCP - General Family Medicine 07/03/21
--- OUTSIDE RECORDS SUMMARY | 2025-03-25 17:41 | XMS_ITS | CONTINUITY OF CARE DOCUMENT ---
Author Name laureano tinsley Address Unknown Organization [facility] Address [address] [facility] [address] [facility] [address] [place] [address] Phone [phone] Care Team Providers Care Finance Business Manager Name Role Phone Miles MONTGOMERY, Uzair Unavailable LISA MONTGMOERY, DONNELL Unavailable [phone] DONNELL GONZALEZ MD Unavailable [phone] PROBLEMS Condition Status Date Provider Notes Hyperlipidemia [...] In-person encounter Office Visit Uzair Aquino MD [place] Office HyperlipidemiaHTN essentialDiabetes mellitusFAMILY HISTORY OF HEART [...] Payer name Policy type / Coverage type [employer] party ID [place] MEDICAID (2) Medicaid [id number] ADVANCE DIRECTIVES Name Date DISCUSSED - NO [...]
--- OUTSIDE RECORDS SUMMARY | 2025-03-25 17:42 | XMS_ITS | Clinical Summary ---
Author Organization [facility] Address [address] [place] [phone] Care Team Providers Care Vice President Talent Management Name Role Phone Isael Galdamez MD Primary [...] hyperglycemia, with long-term current use of insulin ([facility]) Take 1 tablet (300 mg total) by mouth daily 90 tablet 3 02/11/2025 Active metFORMIN (GLUCOPHAGE) 1,000 mg tabletIndicatio ns:Type 2 diabetes mellitus with hyperglycemia, with long-term current use of insulin ([facility]) Take 1 tablet (1,000 mg total) by mouth 2 (two) times a day with meals 180 tablet 02/11/2025 Active rosuvastatin (CRESTOR) 10 mg tabletIndicatio ns:Hyperlipidem ia associated with type 2 diabetes mellitus ([facility]) Take 1 tablet (10 mg total) by mouth daily 90 tablet 02/11/2025 02/12/20 26 Active irbesartan (AVAPRO) 300 mg tabletIndicatio ns:Hypertension associated with type 2 diabetes mellitus ([facility]) Take 1 tablet (300 mg total) by mouth daily 90 tablet 3 02/11/2025 02/12/20 26 Active amLODIPine (NORVASC) 10 mg tabletIndicatio ns:hypertension Take 1 tablet (10 mg total) by mouth daily 90 tablet 3 02/11/2025 02/12/20 26 Active BASAGLAR 100 unit/mL (3 mL) pen for injectionIndica tions:Type 2 diabetes mellitus with hyperglycemia, with long-term current use of insulin ([facility]) Inject 50 Units under the [...] barefoot. Assessment & Plan (10/08/2024 9:21 AM NETWORK RELATIONS CONSULTANT): Chronic problem. Currently taking Gabapentin 300mg qam [...] barefoot. Assessment & Plan (09/25/2023 9:41 AM NETWORK RELATIONS CONSULTANT): Chronic problem. Currently taking Gabapentin 300mg qam & 600mg qhs. Aware to check feet nightly & not go barefoot. BMI 29.0-29.9,adult 12/12/2022 Assessment & Plan (12/12/2022 2:01 PM NETWORK RELATIONS CONSULTANT): Discussed healthy diet and importance of regular [...] daily. Assessment & Plan (10/08/2024 9:41 AM NETWORK RELATIONS CONSULTANT): Chronic problem. BP elevated upon rooming & [...] daily Assessment & Plan (09/25/2023 9:45 AM NETWORK RELATIONS CONSULTANT): Chronic problem. Not at goal. BP elevated [...] BP. Assessment & Plan (12/12/2022 2:36 PM NETWORK RELATIONS CONSULTANT): Chronic problem, typically well controlled on current [...] rosuvastatin 10mg daily. Last lipid panel 10/08/24 QSR=948, GN=768. Assessment & Plan (10/08/2024 9:22 AM NETWORK RELATIONS CONSULTANT): Chronic problem. Controlled on current rosuvastatin 10mg daily. Last lipid panel 09/25/23 LDL=58, GJ=639. Will update labs today. Does not mychart. Verified phone #/address to contact re: results. Assessment & Plan (06/07/2024 9:09 AM CDT): Chronic problem. Controlled on current rosuvastatin 10mg daily. Last lipid panel 09/25/23 LDL=58, KG=938. Assessment & Plan (04/05/2024 3:19 PM CDT): Chronic problem. Controlled on current rosuvastatin 10mg daily. Last lipid panel 09/25/23 LDL=58, YB=822. Assessment & Plan (03/05/2024 10:19 AM CDT): Chronic problem. Controlled on current rosuvastatin 10mg daily. Last lipid panel 09/25/23 LDL=58, EC=091. Assessment & Plan (09/25/2023 9:45 AM NETWORK RELATIONS CONSULTANT): Chronic problem. Well controlled on current rosuvastatin 10mg daily. Last lipid panel 08/22/22: LDL=78, LA=623. Will update labs today. Does not mychart. Verified phone #/address to contact re: results. Assessment & Plan (06/10/2023 9:06 AM CDT): Chronic problem. Well controlled on current rosuvastatin 10mg daily. Last lipid panel 08/22/22: LDL=78, SC=151. No changes at this time. Assessment & Plan (12/12/2022 2:19 PM NETWORK RELATIONS CONSULTANT): Chronic problem. Well controlled on current rosuvastatin 10mg daily. Last lipid panel 08/22/22: LDL=78, PU=553. Has been out of medication x 9-10 days. Refilled at this time. Reviewed diet recommendations. No changes at this time. Assessment & Plan (08/22/2022 9:34 AM CDT): Chronic problem. On statin therapy, no changes. Assessment & Plan (02/21/2022 9:37 AM CDT): Chronic problem. On statin therapy, no changes. Assessment & Plan (10/11/2021 2:02 PM NETWORK RELATIONS CONSULTANT): Check lipid profile Adjust dose of Crestor [...] UTD on labs. DM eye exam 08/2024 [facility] in [place]. 2nd request letter sent to get copy [...] infection. Assessment & Plan (10/08/2024 9:42 AM NETWORK RELATIONS CONSULTANT): Chronic problem, A1c worsened from 7.2% 06/07/24 [...] infection. Assessment & Plan (09/25/2023 9:34 AM NETWORK RELATIONS CONSULTANT): Chronic problem, uncontrolled but improved from 9.1% [...] infection. Assessment & Plan (12/12/2022 2:37 PM NETWORK RELATIONS CONSULTANT): Chronic problem, not at goal but improved [...] needed. Assessment & Plan (10/11/2021 2:01 PM NETWORK RELATIONS CONSULTANT): Hba1c was Lab Results Component Value Date [...] CDT - 03/24/2025 11:21 PM CDT Emergency [address] [address] Discharge Disposition: Left without being seen 02/22/2025 Telephone [facility] Medical Group Diabetes and Endocrinology [address] [place] [phone] Angela Mg NP Prior Auth (Ozempic/) 02/16/2025 Orders Only [facility] Medical [facility] Diabetes and Endocrinology [address] [place] [phone] Provider, MD Kedar 02/11/2025 9:00 AM CDT Office Visit [facility] Medical Group Diabetes and Endocrinology [address] [place] [phone] Angela Mg NP Type 2 diabetes mellitus [...] on file Legal Sex Male 12:34 PM NETWORK RELATIONS CONSULTANT Gender Identity Not on file Sexual Orientation [...] (HCC) LIPID PANEL Routine 10/08/2024 8:00 AM NETWORK RELATIONS CONSULTANT Type 2 diabetes mellitus with hyperglycemia, with long-term current use of insulin (HCC) Hyperlipidemia associated with type 2 diabetes mellitus (HCC) ALBUMIN CREATININE RATIO, URINE Routine 10/08/2024 8:00 AM NETWORK RELATIONS CONSULTANT Type 2 diabetes mellitus with hyperglycemia, with long-term current use of insulin (HCC) HM DIABETES EYE EXAM Routine 08/20/2024 7:31 AM CDT EGFR Routine 09/25/2023 9:27 AM NETWORK RELATIONS CONSULTANT Type 2 diabetes mellitus with hyperglycemia, with [...] Albumin Creatinine Ratio, Urine (10/08/2024 8:00 AM NETWORK RELATIONS CONSULTANT) Albumin Ur 81.7 mg/L Comment: Interpretive Data No reference range established. Current interpretive data was last revised 2019. Creatinine Ur 51.9 mg/dL ABDON DAVIDSON Comment: Interpretive Data No reference range established. Current interpretive data was last revised 2019. Albumin Creatinine Ratio, Ur 157(H) 1 - 29 mg/g ABDON DAVIDSON Urine 10/08/2024 8:00 AM NETWORK RELATIONS CONSULTANT 10/08/2024 5:17 PM NETWORK RELATIONS CONSULTANT us Angela Mg NP LAB URINE ORDERABLES Beverly l Result ABDON DAVIDSON [address] [address] Department [place] [address] * (ABNORMAL) Lipid panel (10/08/2024 8:00 AM NETWORK RELATIONS CONSULTANT) Cholesterol 163 30 - 199 mg/dL Comment: [...] 4 ABDON DAVIDSON Blood 10/08/2024 8:00 AM NETWORK RELATIONS CONSULTANT 10/08/2024 5:17 PM NETWORK RELATIONS CONSULTANT us Angela Mg NP LAB BLOOD ORDERABLES Ebverly l Result ABDON DAVIDSON [address] [address] Department [place] [address] * DIABETES EYE EXAM (08/20/2024 7:31 AM CDT) us Historical Provider HEALTH MAINTENANCE Final Result * eGFR (09/25/2023 9:27 AM NETWORK RELATIONS CONSULTANT) eGFR 88 mL/min/1. 73 m2 ABDON DAVIDSON [...] last reviewed 2021. Blood 09/25/2023 9:27 AM NETWORK RELATIONS CONSULTANT 09/25/2023 2:35 PM NETWORK RELATIONS CONSULTANT Angela Mg ADVERTISING ACCOUNT REPRESENTATIVE LAB BLOOD ORDERABLES Beverly mckeon Result ABDON [address] [address] Department [place] [address] * PSA, total Blood (05/19/2021 9:21 AM CDT) SCRIBED PSA, Total 1.4 <=4.0 - NA EXTERNAL LAB Blood specimen (specimen) 05/19/2021 9:21 AM CDT us Historical Provider LAB BLOOD ORDERABLES Edit ed Result - Final EXTERNAL LAB from Last 3 Months or Most Recently Relevant to Health Maintenance Insurance [facility] Care Teams Vice President Talent Management Relationship Specialty Start Date End Date Isael Galdamez MD [address] [place] [address] PCP - General Family Medicine 07/03/21
--- OUTSIDE RECORDS SUMMARY | 2025-03-25 17:42 | XMS_ITS | Clinical Summary ---
Author Organization [facility] Address [address] [place] [address] Care Team Providers Care Copier Repair Technician Name Role Phone Isael Galdamez MD Primary Care Provider [phone] Source Comments [facility],non-owned Affiliates and Associated Physician Practices is amultiple site organization consisting of ambulatory clinics and hospital sitesin [place], [place], [place] and [place]. This disclosure is being madepursuant to the Care Everywhere program and may not contain all information available regarding this patient. Last updated 18.[facility] Allergies No known active allergies Medications * [...] every 7 days 4 Active HYDROcodone-ac etaminophen ([place]) 5-325 MG tabletIndicati ons:Prostate cancer (HCC) Take [...] days 6 tablet 4 Active HYDROcodone-ac etaminophen ([place]) 5-325 MG tabletIndicati ons:Malignant neoplasm of prostate [...] on file Legal Sex Male 5:28 PM KOHINOOR OPERATOR Gender Identity Not on file Sexual Orientation [...] 12.6(H) <=5.6 % 02/26/2024 11:27 AM CDT [facility] Estimated Average Glucose 315 mg/dL 02/26/2024 11:27 AM CDT [facility] Comment: HbA1c Interpretation: Normal : < 5.7% Pre-diabetes: 5.7-6.4% Diabetes: Equal to or greater than 6.5% Test results diagnostic of diabetes should be repeated for confirmation. Treatment target values recommended by ADA and other clinical organizations should be used to evaluate metabolic control in patients. Reference: [place] Diabetes Association, Standards of Care in Diabetes [...] CDT 02/26/2024 9:37 AM CDT John Clayton [facility] [facility] [facility] - CHEMISTRY ORDER MAO Final Result [facility] [address] [address], [facility] [phone] * (ABNORMAL) COMPREHENSIVE METABOLIC PANEL (02/26/2024 9:17 AM CDT) BUN 17 7 - 26 mg/dL 02/26/2024 10:04 AM CDT [facility] Creatinine 0.88 0.71 - 1.16 mg/dL 02/26/2024 10:04 AM CDT [facility] Sodium 137 136 - 145 mmol/L 02/26/2024 10:04 AM [facility] Potassium 4.3 3.5 - 4.5 mmol/L 02/26/2024 10:04 AM [facility] Chloride 103 98 - 107 mmol/L 02/26/2024 10:04 AM [facility] CO2 26 22 - 29 mmol/L 02/26/2024 10:04 AM [facility] Glucose 276(H) 70 - 115 mg/dL 02/26/2024 10:04 AM [facility] Calcium 9.6 8.4 - 10.2 mg/dL 02/26/2024 10:04 AM [facility] Protein Total 6.7 6.0 - 8.3 g/dL 02/26/2024 10:04 AM [facility] Albumin 3.5 3.4 - 5.0 g/dL 02/26/2024 10:04 AM [facility] Bilirubin Total 0.4 0.2 - 1.2 mg/dL 02/26/2024 10:04 AM [facility] Alkaline Phosphatase 94 40 - 150 U/L 02/26/2024 10:04 AM [facility] ALT 21 5 - 55 U/L 02/26/2024 10:04 AM [facility] AST 17 5 - 34 U/L 02/26/2024 10:04 AM [facility] Anion Gap 8 6 - 16 02/26/2024 10:04 AM [facility] BUN/Creatinine Ratio 19 7 - 23 02/26/2024 10:04 AM [facility] Osmolality Calculated 295 275 - 295 mOsm/kg 02/26/2024 10:04 AM [facility] Albumin/Globulin Ratio 1.1 1.1 - 2.3 02/26/2024 10:04 AM [facility] eGFR by CKD-EPI >90 >=90 mL/min/1.7 3 m2 02/26/2024 10:04 AM [facility] Blood BLOOD SPECIMEN / Unknown Lab Venipuncture / Unknown 02/26/2024 9:17 AM [facility] 02/26/2024 9:39 AM CDT us Hansanico Cavazos Clayton [facility] - CHEMISTRY ORDER MAO Final Result [facility] [address] [place] [address], [facility] [phone] * MICROALB/CREAT RATIO URINE RANDOM PANEL (06/19/2016 10:00 AM CDT) Albumin Random Urine <5.0 Not Established mcg/mL [facility] Creatinine Urine 57 Not Established mg/dL [facility] Comment:Result obtained by madisyn barrios. Urine Albumin/Creati nine Ratio <9 <30 mg/g [facility] Albumin/Creati nine Ratio Urine See Comment <30 mg/g [facility] Comment:Unable to calculate the Urine Albumin/Creatinine Ratio due to one or more analyte concentration(s) being outside the measuring limits of the instrument. Urine specimen (specimen) URINE / Unknown 06/19/2016 10:00 AM CDT 06/19/2016 10:42 AM CDT us Mario Vasquez MD LAB - URINE CHEMISTRY ORDERABLES Final Result [facility] [address] [place], [place] [address] [phone] from Last 3 Months or Most Recently Relevant to Health Maintenance Insurance [facility] SELF PAY NO INSURANCE Member Subscriber Plan / Payer (Ef fective for All Dates) Name:Jorge Stevenson Member ID:Not on file Relation to Subscriber:Not on file Name:JORGE STEVENSON Subscriber ID:Not on file Address: [address] [place] [id number] Payer ID:Not on file Group ID:Not on file Type:Self Pay Address: [place], [place] [facility] SELF PAY NO INSURANCE Member Subscriber Plan / Payer (Ef fective for All Dates) Name:Jorge Stevenson Member ID:Not on file Relation to Subscriber:Not on file Name:JORGE STEVENSON Subscriber ID:Not on file Address: [address] [place] [address] [address] [place] [address] Payer ID:Not on file Group ID:Not on file Type:Self Pay Address: [place], [place] * Guarantor: JORGE STEVENSON Account Type Relation to Patient Date of Phone Billing Address Personal/Family Spouse Advance Directives * Full Code (Latest Code Status on File) Date Activated Date Inactivated Comments 03/11/2024 12:49 PM 03/12/2024 1:08 PM Care Teams Copier Repair Technician Relationship Specialty Start Date End Date Isael Galdamez MD [address] [facility] [address] [place] [id number] PCP - General 04/25/15
--- NOTE | 2025-03-25 18:14 | ED_ITS ---
HPI - General Adult General Chief complaint: Skin/Abscess/Foreign Body Stated complaint: poss spider bite Time Seen by Provider: 03/25/25 17:28 History of Present Illness HPI narrative: This is a 60 year old male presenting with a possible spider bite. Patient says he was crawling underneath his mobile home and there are a large amounts bars. Later he noticed a large red bite on his stomach that has been getting progressively worse. He has not have any other signs symptoms such as fevers chills nausea vomiting or diarrhea. Wound is painful. There has been purulent drainage. Related Data Home Medications ?Medication ?Instructions ?Recorded ?Confirmed ?Last Taken ?Type canagliflozin 300 mg tablet 300 mg PO DAILY 11/11/23 11/24/23 Unknown History (Invokana) gabapentin 300 mg capsule 300 mg PO TID 11/11/23 11/24/23 Unknown History insulin glargine 100 unit/mL (3 50 unit subcut HS 11/11/23 11/24/23 Unknown History mL) subcutaneous pen (Basaglar KwikPen U-100 Insulin) irbesartan 300 mg tablet 300 mg PO DAILY 11/11/23 11/24/23 Unknown History metformin 1,000 mg tablet 1,000 mg PO BID 11/11/23 11/24/23 Unknown History rosuvastatin 10 mg tablet 10 mg PO DAILY 11/11/23 11/24/23 Unknown History Allergies Allergy/AdvReac Type Severity Reaction Status Date / Time No Known Allergies Allergy Verified 03/25/25 17:04 [facility] Past Medical History Medical History (Updated 03/25/25 @ 20:12 by Michael Dunbar MD) Weight loss Abnormal CT scan, stomach Abdominal pain Social History Social History Smoking packs per day: 0.75 Smoking cigarettes per day: 15.0 Years smoked: 46 Smoking pack-years: 34.50 Smoking status: Current every day smoker Tobacco type: cigarettes Alcohol intake: current Substance use: former Living arrangements: alone Spiritual care concerns: No Exam 2 Narrative: APPEARANCE: No apparent distress. Head: atraumatic. EYES: EOMI, NOSE: Atraumatic NECK: Trachea midline RESPIRATORY: No increased rate of breathing CARDIOVASCULAR: RRR, ABDOMINAL: Large well-circumscribted indurated circular lesion on the patient's abdomen with a central scabbing. MUSCULOSKELETAl: No obvious deformities NEURO: Alert. Moving 4/4 extremities SKIN:: Warm, dry. Normal color PSYCHIATRIC: Normal affect Course Vital Signs Vital signs: Vital Signs Temperature 97.5 F L 03/25/25 17:07 Pulse Rate 92 03/25/25 17:07 Respiratory Rate 20 03/25/25 17:07 Blood Pressure 151/69 H 03/25/25 17:07 Pulse Oximetry 95 03/25/25 17:07 Temperature 97.5 F L 03/25/25 17:07 Pulse Rate 77 03/25/25 19:13 Respiratory Rate 19 03/25/25 19:13 Blood Pressure 177/90 H 03/25/25 19:13 Pulse Oximetry 100 03/25/25 19:13 Procedures Abscess I/D abdomen: Date of Incision: 03/25/25 Local Anesthetic: bupivacaine 0.25% Amount of anesthesia used (mL): 15 Technique: incised with #11 blade Amount of fluid expressed (mL): 15 Irrigation: Yes Packing used?: iodoform I&D Results: Pus and Blood Medical Decision Making MDM Narrative Medical decision making narrative: -Course: 60-year-old male presenting with abscess of the abdominal wall. Possibly chronic his pain. Incision and drainage performed. Patient placed on clindamycin due to surrounding cellulitic changes. Patient will be given close follow-up with General surgery in case he needs further debridement. Given return precautions. Discharged. -DDX includes but is not limited to: Abscess with cellulitis, brown recluse bite Vital Signs Vital Signs: Vital Signs Temperature 97.5 F L 03/25/25 17:07 Pulse Rate 92 03/25/25 17:07 Respiratory Rate 20 03/25/25 17:07 Blood Pressure 151/69 H 03/25/25 17:07 Pulse Oximetry 95 03/25/25 17:07 Temperature 97.5 F L 03/25/25 17:07 Pulse Rate 77 03/25/25 19:13 Respiratory Rate 19 03/25/25 19:13 Blood Pressure 177/90 H 03/25/25 19:13 Pulse Oximetry 100 03/25/25 19:13 Lab Data 03/25/25 18:16 03/25/25 18:50 Labs: Lab Results 03/25/25 03/25/25 Range/Units 18:16 18:50 WBC 11.8 H (4.5-10.0) K/mm3 RBC 5.32 (4.6-6.20) M/mm3 Hgb 15.8 (14.0-18.0) g/dL Hct 49.0 (42.0-52.0) % MCV 92.1 (80-100) fl MCH 29.7 (26-34) pg MCHC 32.2 (32-36) g/dl RDW 13.6 (11.5-14.5) % Plt Count 258 (150-375) k/mm3 MPV 9.8 (7.4-10.4) fl Immature Gran % (Auto) 0.5 (0-0.5) % Neut % (Auto) 67.0 (45.5-73.1) % Lymph % (Auto) 17.4 L (18.3-44.2) % Randall % (Auto) 9.1 H (2.6-8.5) % Eos % (Auto) 5.3 H (0-4.4) % Baso % (Auto) 0.7 (0.2-1.2) % Lymph # (Auto) 2.05 (0.9-3.2) K/mm3 Randall # (Auto) 1.1 H (0.1-0.6) K/mm3 Eos # (Auto) 0.6 H (0-0.3) K/mm3 Baso # (Auto) 0.1 (0.0-0.1) K/mm3 Abs Immat Gran (auto) 0.06 H (0.00-0.031) K/mm3 Absolute Neuts (auto) 7.9 H (1.3-6.7) K/mm3 Absolute Nucleated RBC 0.000 (0.0-0.012) K/mm3 Nucleated RBC % 0.0 (0.0-0.2) % Sodium 139 (137-145) mmol/L Potassium 4.2 (3.4-5.0) mmol/L Chloride 102 (98-107) mmol/L Carbon Dioxide 29 (22-30) mmol/L Anion Gap 8 (4-12) mmol/L BUN 22 H (9-20) mg/dL Creatinine 1.08 1.20 (0.7-1.3) mg/dL Estim Creat Clear Calc 66 60 ml/min Estimated GFR > 60 > 60 (59 - ) Glucose 125 H (65-110) mg/dL Lactic Acid 0.9 (0.7-2.0) mmol/L Calcium 9.6 (8.4-10.2) mg/dL Total Bilirubin 0.5 (0.2-1.3) mg/dL AST 21 (17-59) U/L ALT 17 (6-50) U/L Alkaline Phosphatase 91 (38-126) U/L Total Protein 8.0 (6.3-8.2) g/dL Albumin 4.2 (3.5-5.1) g/dL Discharge Plan Discharge Clinical Impression: Abscess, Cellulitis Patient Disposition: Home Condition: Stable Instructions: Antibiotic Form, Abscess (ED) Additional Instructions: You were seen emergency department for an abscess on your abdomen. This may have been caused by a brown recluse. Please take the antibiotics as instructed. Please remove the packing in 48 hours. Please follow-up with the general surgeon listed below in the next 48-72 hours for a wound check. If you develops systemic signs of illness such as fevers or the redness is spreading please return to the ED immediately. Patient Language: Citizen Of [place] Prescriptions: New clindamycin HCl [Cleocin HCl] 150 mg capsule 450 mg PO Q6H 10 Days Qty: 120 0RF No Action omeprazole 40 mg capsule,delayed release(DR/EC) 40 mg PO DAILY Qty: 30 0RF metformin 1,000 mg tablet 1,000 mg PO BID gabapentin 300 mg capsule 300 mg PO TID irbesartan 300 mg tablet 300 mg PO DAILY rosuvastatin 10 mg tablet 10 mg PO DAILY insulin glargine [Basaglar KwikPen U-100 Insulin] 100 unit/mL (3 mL) insulin pen 50 unit SUBCUT HS Invokana 300 mg tablet 300 mg PO DAILY Follow-up/Referrals: Isael Galdamez MD [Primary Care Provider] - Bernard Fang MD [Physician] - 2 Days (Wound Check, Abdominal abscess/recluse bite)
[2025-03-25 18:32] LABS: Basophils Absolute Auto 0.1 K/mm3 (0.0-0.1); Basophils Percent Auto 0.7 % (0.2-1.2); Eosinophils Absolute Auto 0.6 K/mm3 (0-0.3); Eosinophils Percent Auto 5.3 % (0-4.4); Hemoglobin 15.8 g/dL (14.0-18.0); Immature Granulocyte Absolute 0.06 K/mm3 (0.00-0.031); Immature Granulocyte Percent A 0.5 % (0-0.5); Lymphocytes Absolute Auto 2.05 K/mm3 (0.9-3.2); Lymphocytes Percent Auto 17.4 % (18.3-44.2); Mean Corpuscular HGB Conc 32.2 g/dl (32-36); Mean Corpuscular Hemoglobin 29.7 pg (26-34); Mean Corpuscular Volume 92.1 fl (80-100); Mean Platelet Volume 9.8 fl (7.4-10.4); Monocytes Absolute Auto 1.1 K/mm3 (0.1-0.6); Monocytes Percent Auto 9.1 % (2.6-8.5); Neutrophils Absolute Auto 7.9 K/mm3 (1.3-6.7); Platelet Count Result 258 k/mm3 (150-375); Red Blood Count 5.32 M/mm3 (4.6-6.20); Red Cell Distribution Width 13.6 % (11.5-14.5); White Blood Count 11.8 K/mm3 (4.5-10.0)
[2025-03-25 18:41] LABS: Lactic Acid Reflex 0.9 mmol/L (0.7-2.0)
[2025-03-25 18:42] LABS: Alanine Aminotransferase 17 U/L (6-50); Albumin Level 4.2 g/dL (3.5-5.1); Alkaline Phosphatase 91 U/L (38-126); Anion Gap 8 mmol/L (4-12); Aspartate Amino Transferase 21 U/L (17-59); Bilirubin,Total 0.5 mg/dL (0.2-1.3); Blood Urea Nitrogen 22 mg/dL (9-20); Calcium 9.6 mg/dL (8.4-10.2); Carbon Dioxide 29 mmol/L (22-30); Chloride 102 mmol/L (98-107); Estimated CRCL calculation 66 ml/min; Estimated Glomerular Filt Rate > 60; Glucose 125 mg/dL (65-110); Potassium 4.2 mmol/L (3.4-5.0); Sodium 139 mmol/L (137-145)
[2025-03-25 18:51] LABS: Estimated CRCL calculation 60 ml/min; Estimated Glomerular Filt Rate > 60
[2025-03-25 19:13] VITALS: BP 177/90; PULSE 77; RESP 19; O2SAT 100
[2025-03-25] MEDS: CLINDAMYCIN HCL 150 MG CAP 450 MG PO (19:56)
[2025-03-25] MEDS: TETANUS,DIPHTHERIA,AC PERTUSSIS ADULT (0.5 ML) BOOSTRIX IM (20:33)
== END 2025-03-25 22:18 | disposition home or self-care (01) ==
PROVIDERS: Emergency Provider Emergency Medicine; PCP Emergency Medicine
DX: L02.211 Cutaneous abscess of abdominal wall (principal); L03.311 Cellulitis of abdominal wall; Z23 Encounter for immunization; F17.210 Nicotine dependence, cigarettes, uncomplicated; Z79.4 Long term (current) use of insulin; Z79.899 Other long term (current) drug therapy; Z79.84 Long term (current) use of oral hypoglycemic drugs
CPT/HCPCS: 10061; 36415; 74177; 80053; 83605; 85025; 90471; 90715; 99284; Q9967